=== PATIENT | male | born 1960 | race Caucasian/White ===

== ENCOUNTER → 2016-12-25 | Outpatient (CLI) | payer OTHER ==
[2015-12-30 11:30] VITALS: BP 104/57
[~2016-12-25] MED LIST: AMLO10TA4 PO; ATOR40TA PO; Aspirin PO; DOCU-109 PO; FURO-68 PO; LISI20TA PO; METH-38 PO; METO50TA2 PO; Metoprolol Tartrate PO; Nicotine TD; OXYC-323 PO; OXYC1TAB7 PO; PANT40TA3 PO; POTA20TA4 PO; PROAIR HFA8.5 GM IH
--- NOTE | 2016-12-25 13:30 | CARD ---
APPROVED REPORT EXAM: Two-dimensional and M-mode echocardiogram with Doppler and color Doppler. Other Information Quality : GoodHR: 71bpm Rhythm : NSR INDICATION Cardiac Disease: CAD RISK FACTORS Hypertension Obesity Smoking 2D DIMENSIONS RVDd2.9 (2.9-3.5cm)Left Atrium(2D)2.4 (1.6-4.0cm) IVSd1.0 (0.7-1.1cm)Aortic Root(2D)3.9 (2.0-3.7cm) LVDd5.1 (3.9-5.9cm)LVOT Diameter2.3 (1.8-2.4cm) PWd1.0 (0.7-1.1cm)LVDs3.6 (2.5-4.0cm) FS (%) 30.5 %SV71.8 ml LVEF(%)57.6 (>50%) Aortic Valve AoV Peak Patricio.150.1cm/sAoV VTI28.2cm AO Peak GR.9.0mmHgLVOT Peak Patricio.97.8cm/s AO Mean GR.5mmHgAVA (VMAX)2.65cm2 Mitral Valve MV E Tbscnmri95.6cm/sMV E Peak Gr.3mmHg MV DECEL [id number] A Mpqmmyhc06.3cm/s MV E Mean Gr.1mmHgE/A Ratio0.8 MV A Iqnrjzvo92mu Pulmonary Valve PV Peak Gonqqxce10.9cm/s Pulmonary Vein S1 Vfyuxpnd17.1cm/sD2 Qejjskyr41.6cm/s PVa skjybmeo39glna LEFT VENTRICLE The left ventricle is normal size. There is normal left ventricular wall thickness. The left ventricu lar systolic function is normal and the ejection fraction is within normal range. The Ejection Fracti on is 55-60%. There is normal LV segmental wall motion. Transmitral Doppler flow pattern is Grade I-a bnormal relaxation pattern. RIGHT VENTRICLE The right ventricle is normal size. There is normal right ventricular wall thickness. The right ventr icular systolic function is normal. ATRIA The left atrium size is normal. The right atrium size is normal. The interatrial septum is intact wit h no evidence for an atrial septal defect or patent foramen ovale as noted on 2-D or Doppler imaging. AORTIC VALVE The aortic valve is not well visualized but appears mildly calcified and opens adequately. Doppler an d Color Flow revealed no significant aortic regurgitation. There is no significant aortic valvular st enosis. MITRAL VALVE The mitral valve is not well visualized but appears to open adequately. There is no evidence of porsche l valve prolapse. There is no mitral valve stenosis. Doppler and Color Flow revealed trace mitral tayler ve regurgitation. TRICUSPID VALVE Doppler and Color Flow revealed no tricuspid valve regurgitation noted. PULMONIC VALVE The pulmonic valve is not well visualized but appears to open adequately. Doppler and Color Flow reve aled no pulmonic valvular regurgitation. There is no pulmonic valvular stenosis by spectral Doppler. GREAT VESSELS The aortic root is mildly enlarged. The ascending aorta is mildly dilated. The pulmonary artery is no rmal. The IVC was obscured, unable to assess. PERICARDIAL EFFUSION There is no evidence of significant pericardial effusion. Critical Notification Critical Value: No <Conclusion> The left ventricle is normal size. The left ventricular systolic function is normal and the ejection fraction is within normal range. The Ejection Fraction is 55-60%. There is no significant aortic valvular stenosis. Doppler and Color Flow revealed no significant aortic regurgitation. Doppler and Color Flow revealed trace mitral valve regurgitation. Doppler and Color Flow revealed no tricuspid valve regurgitation noted.
== END | disposition home or self-care (01) ==
LOC: ECHO 10:42
PROVIDERS: ATTEND Internal Medicine Cardiovascular Disease
DX: I25.10 Atherosclerotic heart disease of native coronary artery without angina pectoris (principal); I34.0 Nonrheumatic mitral (valve) insufficiency
CPT/HCPCS: 93306

== ENCOUNTER → 2017-11-01 | Outpatient (CLI) | payer OTHER | END | disposition home or self-care (01) | LOC: KCIC US 10:14 | DX: R60.0 Localized edema (principal); I13.0 Hypertensive heart and chronic kidney disease with heart failure and stage 1 through stage 4 chronic kidney disease, or unspecified chronic kidney disease; I50.9 Heart failure, unspecified; N18.9 Chronic kidney disease, unspecified; E78.5 Hyperlipidemia, unspecified; Z86.2 Personal history of diseases of the blood and blood-forming organs and certain disorders involving the immune mechanism | CPT/HCPCS: 93970 ==

== ENCOUNTER → 2017-12-26 | Outpatient (CLI) | payer MEDICARE, OTHER ==
[2015-12-30 11:30] VITALS: BP 104/57
[~2017-12-26] MED LIST changes: -METO50TA2 PO; +METO50TA6 PO; +PERFLUTREN PROTEIN-A MICROSPHR 0.22 MG/ML 3 ML VIAL. IV ONE; +PERFLUTREN PROTEIN-A MICROSPHR 0.22 MG/ML 3 ML VIAL. IV PRN
--- NOTE | 2017-12-26 11:05 | CARD ---
MR#: [id number] Date of Study: 12/26/2017 Ordering Physician: JOE KUHN, Referring Physician: JOE KUHN Tech: Cheyenne Tidwell RDCS APPROVED REPORT EXAM: Two-dimensional echocardiogram with contrast. Other Information Quality : Technically Limited Technically limited study due to body habitus and COPD INDICATION Non-Ischemic Cardiomyopathy Echo Enhancing Agent Agent/Amount Used: Optison 4mL RISK FACTORS Obesity Smoking 2D DIMENSIONS RVDd2.7 (2.9-3.5cm)Left Atrium(2D)3.8 (1.6-4.0cm) IVSd1.6 (0.7-1.1cm)Aortic Root(2D)3.8 (2.0-3.7cm) LVDd5.0 (3.9-5.9cm)LVOT Diameter2.4 (1.8-2.4cm) PWd1.2 (0.7-1.1cm)LVDs2.7 (2.5-4.0cm) FS (%) 30.0 %SV91.7 ml LVEF(%)60.0 (>50%) Aortic Valve AoV Peak Patricio.165.9cm/sAoV VTI29.3cm AO Peak GR.11.0mmHgLVOT VTI 26.11cm AO Mean GR.5mmHgAVA (VTI)3.96cm2 Mitral Valve MV E Wgexkpgb17.4cm/sMV DECEL ZIMQ226qd MV A Okpwgfcl19.5cm/sE/A Ratio1.2 TDI Lateral E' P. V12.04cm/sMedial E' P. V9.33cm/s E/Lateral E'6.8E/Medial E'8.7 Pulmonary Vein S1 Neghgtfw44.0cm/sS2 Fjojlejs94.12cm/s D2 Stjzaryl55.1cm/s LEFT VENTRICLE The left ventricle is normal size. There is mild concentric left ventricular hypertrophy. The left ve ntricular systolic function is normal. The Ejection Fraction is 55-60%. There is normal LV segmental wall motion. RIGHT VENTRICLE The right ventricle is normal size. The right ventricular systolic function is normal. ATRIA The left atrium size is normal. The right atrium size is normal. The interatrial septum is intact wit h no evidence for an atrial septal defect or patent foramen ovale as noted on 2-D or Doppler imaging. AORTIC VALVE The aortic valve is calcified but opens well. Doppler and Color Flow revealed no significant aortic r egurgitation. There is no significant aortic valvular stenosis. MITRAL VALVE The mitral valve is calcified but opens well. There is no evidence of mitral valve prolapse. There is no mitral valve stenosis. Doppler and Color Flow revealed trace mitral valve regurgitation. TRICUSPID VALVE The tricuspid valve is normal in structure and function. Doppler and Color Flow revealed no tricuspid valve regurgitation noted. There is no tricuspid valve stenosis. PULMONIC VALVE The pulmonic valve is not well visualized. Doppler and Color Flow revealed no pulmonic valvular regur gitation. There is no pulmonic valvular stenosis. GREAT VESSELS The aortic root is normal in size. The ascending aorta is not well seen. The IVC was not visualized. PERICARDIAL EFFUSION There is no evidence of significant pericardial effusion. Critical Notification Critical Value: No <Conclusion> The left ventricular systolic function is normal. The Ejection Fraction is 55-60%. There is normal LV segmental wall motion. Trace mitral valve regurgitation. There is no evidence of significant pericardial effusion. Signed by : Joe Kuhn, Electronically Approved : 12/26/2017 11:04:48
== END | disposition home or self-care (01) ==
LOC: ECHO 09:06
PROVIDERS: ATTEND Internal Medicine Cardiovascular Disease
DX: I42.9 Cardiomyopathy, unspecified (principal); I13.0 Hypertensive heart and chronic kidney disease with heart failure and stage 1 through stage 4 chronic kidney disease, or unspecified chronic kidney disease; I50.9 Heart failure, unspecified; N18.9 Chronic kidney disease, unspecified; E78.5 Hyperlipidemia, unspecified; J44.9 Chronic obstructive pulmonary disease, unspecified; F17.210 Nicotine dependence, cigarettes, uncomplicated; Z86.2 Personal history of diseases of the blood and blood-forming organs and certain disorders involving the immune mechanism
CPT/HCPCS: C8929; Q9956

== ENCOUNTER 2018-08-21 17:44 | Inpatient (IN) | payer MEDICARE, OTHER ==
[~2018-08-21] VITALS: Ht 182.9 cm; Wt 146.5 kg
[~2018-08-21 17:44] MED LIST changes: +ALBU2.5V8 IH; -OXYC-323 PO; +OXYC1TAB15 PO; -PERFLUTREN PROTEIN-A MICROSPHR 0.22 MG/ML 3 ML VIAL. IV ONE; -PERFLUTREN PROTEIN-A MICROSPHR 0.22 MG/ML 3 ML VIAL. IV PRN; -PROAIR HFA8.5 GM IH
--- NOTE | 2018-08-21 20:07 | HP ---
ADMIT DATE: 08/21/2018 CHIEF COMPLAINT: Shortness of breath. HISTORY OF PRESENT ILLNESS: A 58-year-old white male who has multiple medical problems including COPD, coronary artery disease, untreated sleep apnea, hypertension, hyperlipidemia and mild diabetes. He has had increasing shortness of breath and borderline oxygen status for the last few weeks, has not responded to diuretics to this point. He has dry cough, some sputum production, but mainly just fatigue and dyspnea. Oxygen saturation was 75% on room air and he was admitted as acute exacerbation of chronic obstructive pulmonary disease with severe hypoxemia and suspected respiratory acidosis. MEDICATIONS: Include metformin, metoprolol, furosemide, lisinopril, amlodipine, Anoro and atorvastatin. He sees Dr. Hart and is known to have medically treated coronary artery disease after cardiac catheterization. Diabetic control was fair with an A1c of 8.1, but he is having trouble tolerating higher dose metformin. PAST SURGICAL HISTORY: He has had an AAA surgery in 05/2015. He has had bilateral lower extremity arterial bypass by Dr. Norton. He has also had lumbar spine surgery as well. ALLERGIES: He has no known drug allergies. SOCIAL HISTORY: Still about half pack a day smoker, has smoked since he was a young man. , employed. Relatively limited alcohol intake. FAMILY HISTORY: Father of heart disease. Mother is living with heart disease and diabetes. Siblings are healthy. REVIEW OF SYSTEMS: He has known sleep apnea, but is intolerant of CPAP. He has no other nonspecific medical problems. OBJECTIVE: ENT: Fairly significant cyanosis is present. Eyes, ears and pharynx clear. Eyes are red. NECK: Revealed no carotid bruits, nodes, thyroid enlargement or masses. LUNGS: Reveal bilateral inspiratory crackles and expiratory wheezes, mild to moderate in nature. CARDIOVASCULAR: Regular rate. No tachycardia or murmurs heard. ABDOMEN: Obese, soft, protuberant, benign and nontender. EXTREMITIES: 3+ pitting edema of both lower extremities, minimal pedal pulses. Nails are cyanotic. Clubbing is noted in the fingernails. NEUROLOGIC: Alert, appropriate, responsive, nonfocal, moves all extremities, walks appropriately. ASSESSMENT: 1. Severe exacerbation of acute chronic obstructive pulmonary disease with fair to severe hypoxemia. He is an ongoing tobacco smoker, certainly has a degree of pulmonary hypertension and cor pulmonale. 2. Edema, likely secondary more to cor pulmonale than anything. 3. Untreated obstructive sleep apnea. 4. Type 2 diabetes mellitus. 5. Chronic tobacco abuse. 6. Peripheral arterial disease. 7. Coronary artery disease, medical to this point. PLAN: Diuresis, Solu-Medrol, respiratory treatments, pulmonary assessment with chest x-ray and may well need a CT to rule out chronic thromboembolic disease. He is at moderate risk for the need for BiPAP and even intubation at this point. Appropriate consultations will be obtained. JIM SAMS MD DR: BI/torres JOB#: [id number] / [id number]
[2018-08-21 20:16] VITALS: BP 144/74
[2018-08-21] MEDS ORDERED: AMLO5TAB10 PO (20:25)
[2018-08-21] MEDS ORDERED: METF500T16 PO (20:25)
[2018-08-21] MEDS ORDERED: NICOTINE 21MG PATCH. TD PRN (21:00)
[2018-08-21] MEDS ORDERED: ALBUTEROL SULFATE 2.5 MG/3 ML NEBU. NEB PRN (21:00)
[2018-08-21] MEDS ORDERED: ALBUTEROL SULFATE 2.5 MG/3 ML NEBU. INH PRN (21:00)
[2018-08-21] MEDS ORDERED: METOPROLOL TART IMMED RELEASE 50 MG TABLET. PO SCH (21:00)
[2018-08-21 21:50] LABS: BASO # 0.1 x10^3/uL (0.0-0.2); BASO % 1 % (0-3); EOS # 0.2 x10^3/uL (0.0-0.7); EOS % 2 % (0-3); HEMATOCRIT 55.2 % (39.0-53.0); HEMOGLOBIN 17.9 g/dL (13.0-17.5); LYMPH # 1.3 x10^3/uL (1.0-4.8); LYMPH % 13 % (24-48); MEAN CORPUSCULAR HEMOGLOBIN 32 pg (25-35); MEAN CORPUSCULAR HGB CONC 33 g/dL (31-37); MEAN CORPUSCULAR VOLUME 97 fL (79-100); MONO # 0.6 x10^3/uL (0.0-1.1); MONO % 6 % (0-9); NEUT # 8.2 x10^3uL (1.8-7.7); NEUT % 79 % (31-73); PLATELET COUNT 222 x10^3/uL (140-400); RED BLOOD COUNT 5.68 x10^6/uL (4.30-5.70); RED CELL DISTRIBUTION WIDTH 18.8 % (11.5-14.5); WHITE BLOOD COUNT 10.3 x10^3/uL (4.0-11.0)
[2018-08-21 22:06] LABS: ALBUMIN 2.9 g/dL (3.4-5.0); ALBUMIN/GLOBULIN RATIO 0.7 (1.0-1.7); CREATININE 1.4 mg/dL (0.7-1.3); GFR 52.1; POTASSIUM 4.4 mmol/L (3.5-5.1); TOTAL BILIRUBIN 0.7 mg/dL (0.2-1.0)
--- NOTE | 2018-08-21 22:30 | RAD ---
EXAM: Chest, 2 views. HISTORY: Shortness of breath. COMPARISON: 06/11/2015 FINDINGS: 2 views of the chest are obtained. There is mild pulmonary congestion. There is no consolidation, pleural effusion or pneumothorax. The heart is normal in size. There are few calcified granulomas. IMPRESSION: Mild pulmonary congestion. Electronically signed by: Rosangela Lynch MD (08/21/2018 10:27 PM) [facility]
[2018-08-21] MEDS: ATORVASTATIN CALCIUM 40 MG TABLET. PO SCH (22:42)
[2018-08-21] MEDS: methylPREDNISolone SOD SUCC PF 125 MG/2 ML VIAL. IV SCH (22:42)
[2018-08-21] MEDS: LISINOPRIL 20 MG TABLET PO SCH (22:43)
[2018-08-21 23:05] VITALS: BP 131/68
[2018-08-21 23:42] LABS: PCO2 COOX 66 mmHg (35-46)
[2018-08-21 23:43] LABS: BASE EXCESS COOX 6 mmol/L (-3-3); HCO3 COOX 35 mmol/L (21-28); PO2 COOX 87 mmHg (75-108); SAT O2 COOX 96 % (92-99)
[2018-08-21 23:44] LABS: METHEMOGLOBIN 0.7 % (0.0-1.9); OXYHEMOGLOBIN 85.5 %
[2018-08-22] VITALS (7 sets, daily range): BP systolic 106–156; BP diastolic 45–83
[2018-08-22] MEDS ORDERED: ALPRAZolam 0.5 MG TABLET PO PRN
[2018-08-22 06:38] LABS: BASE EXCESS ABG 2 mmol/L (-3-3); HCO3 ABG 36 mmol/L (21-28); PO2 ABG 70 mmHg (75-108); SAT O2 ABG 90 % (92-99)
[2018-08-22 06:49] LABS: FIO2 ABG 32; PCO2 ABG 105 mmHg (35-46)
--- NOTE | 2018-08-22 07:10 | NUR ---
Rapid Response: Rapid response called by patient's RN for abnormal ABG's. RN states patient was admitted yesterday for COPD exacerbation and BiPap was ordered for HS but patient refused to wear. Upon arrival patient is sitting up in the recliner with BiPap on with settings of I/E 20/6, rate 24, FiO2 40%--RT states BiPap has only been on for a "few minutes". Patient is arousable to name and slow to respond but was oriented to self and place, forgetful of time. Heart tones distant RRR, tele SR and patient does have generalized edema. Lung sounds anteriorly softly coarse and decreased in all harrison. On BiPap oxygen saturations are mid nineties, RR 24, and patient does not appear to be in any distress. Dr Corrales called at 0700, notified of above, patient's past medical history and SoluMedrol dose. Orders received to repeat ABG's in one hour, decrease BiPap rate to 20, and obtain a portable CXR. Notified RN, patient, and patient's family of orders--patient to remain on the unit unless RN notices he is decompensating or worsened ABG results. RN and family verbalizes understanding. See orders and lab results. Addendum: 08/22/18 at 0732 by REMINGTON DEAN RN Amended: Links added.
[2018-08-22] MEDS: methylPREDNISolone SOD SUCC PF 125 MG/2 ML VIAL. IV SCH ×3 (07:12→20:46)
[2018-08-22] MEDS: IPRATRPIUM/ALBUTEROL 0.5/2.5MG 3 ML NEBU. NEB SCH ×4 (07:22→21:03)
--- NOTE | 2018-08-22 07:26 | EKG ---
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
--- NOTE | 2018-08-22 07:44 | RAD ---
Portable chest, 08/22/2018: HISTORY: COPD Comparison is made to a study from 08/21/2018. The heart size is normal. The pulmonary vascularity is within normal limits. No pulmonary infiltrate is seen. There is no evidence of pleural fluid. IMPRESSION: No acute cardiopulmonary abnormality is detected. Electronically signed by: Darrian Mercado MD (08/22/2018 7:42 AM) [facility]
[2018-08-22] MEDS: ASPIRIN CHEWABLE 81 MG TABLET. PO SCH (08:00)
[2018-08-22] MEDS ORDERED: POTASSIUM CHLORIDE 20 MEQ TABLET.ER. PO SCH (08:00)
[2018-08-22] MEDS: metFORMIN 500 MG TABLET PO SCH ×2 (08:00→16:30)
[2018-08-22] MEDS ORDERED: DEXTROSE 50% 25 GM / 50ML DISP.SYRIN. IV PRN (08:30)
--- NOTE | 2018-08-22 08:33 | PDOC ---
Provider Note Provider Note w/out bipap he got sever resp acidosis/hypercarbia, now sleeing on bipap, abg pending- labs ok but high Hb from obvious source- will add low dose lantus re steroids, iv lasix , d/w family, may need icu JIM SAMS MD August 22, 2018 08:33
[2018-08-22 08:53] LABS: BASE EXCESS ABG 3 mmol/L (-3-3); HCO3 ABG 35 mmol/L (21-28); PO2 ABG 70 mmHg (75-108); SAT O2 ABG 93 % (92-99)
[2018-08-22] MEDS ORDERED: FUROSEMIDE 40 MG TABLET. PO SCH (09:00)
[2018-08-22] MEDS: LISINOPRIL 20 MG TABLET PO SCH ×2 (09:00→20:48)
[2018-08-22] MEDS: METOPROLOL TART IMMED RELEASE 50 MG TABLET. PO SCH ×2 (09:00→20:47)
[2018-08-22] MEDS: FAMOTIDINE 20 MG TABLET. PO SCH ×2 (09:00→20:48)
[2018-08-22] MEDS: amLODIPine BESYLATE 5 MG TABLET PO SCH (09:00)
[2018-08-22 09:06] LABS: PCO2 ABG 79 mmHg (35-46)
[2018-08-22 09:07] LABS: FIO2 ABG 35
--- NOTE | 2018-08-22 09:09 | PDOC2 ---
[facility] [employer] [employer] 08/22/18 0909: CARDIAC CONSULT DATE OF CONSULT Date of Consult DATE: 08/22/18 TIME: 08:55 REASON FOR CONSULT Reason for Consult: Shortness of breath Hx of CHF REFERRING PHYSICIAN Referring Physician: Dr. Fan SOURCE Source: Caregiver, Chart review, Patient HISTORY OF PRESENT ILLNESS HISTORY OF PRESENT ILLNESS This is a 58 yo male, with a history of NICM, CAD, abdominal aortic aneurysm s/p repair, COPD, and untreated MARTIN, who presented secondary to shortness of breath. Patient presently requiring BiPAP. Information obtain from and family. Has had progressive dyspnea over the last couple of week. Significantly worse the last couple of days. Has had difficulty sleeping due to shortness of breath. reports some hallucinations at HS. Had been more drowsy recently. Saw PCP yesterday, and was recommend to go to the ED for further evaluation and treatment. Was confused overnight; wandering halls and pulled out IV. Was refusing BiPAP. Blood gas this morning with CO2 105. Presently on BiPAP and drowsy. denies any recent complaints of chest pain, palpitations, dizziness, diaphoresis, or nausea/vomiting. Has h/o venous insufficiency with chronic LE edema. No worse than usual, recently. No recent fevers/illness. Unfortunately, continues to smoke 3/4 pack per day. PAST MEDICAL HISTORY Cardiovascular: CAD, CHF (NICM), HTN, Hyperlipidemia, Other (PAD, aortic mural thrombus, AAA) Pulmonary: COPD, Other (MARTIN) CENTRAL NERVOUS SYSTEM: Other (no pertinent hx) GI: No pertinent hx Heme/Onc: No pertinent hx Hepatobiliary: No pertinent hx Psych: Anxiety Musculoskeletal: Osteoarthritis Rheumatologic: No pertinent hx Infectious disease: No pertinent hx ENT: No pertinent hx Renal/: Chronic renal insuff Endocrine: Diabetes Dermatology: No pertinent hx PAST SURGICAL HISTORY Past Surgical History: Other (AAA repair, bilateral lower extremity arterial bypass by Dr. Norton, back surgery) CURRENT MEDICATIONS CURRENT MEDICATIONS Current Medications Medications (Trade) Dose Ordered Sig/Pat Route PRN Reason Start Time Stop Time Status Last Admin Dose Admin Methylprednisolone Sodium Succinate (SOLU-Medrol 125MG VIAL) 60 mg Q8HRS IV 08/21/18 22:00 08/22/18 07:12 Albuterol/ Ipratropium (Duoneb) 3 ml RTQID NEB 08/22/18 08:00 08/22/18 07:22 Albuterol Sulfate (Ventolin Neb Soln) 2.5 mg PRN Q6HRS PRN NEB SHORTNESS OF BREATH 08/21/18 21:00 08/21/18 21:55 Atorvastatin Calcium (Lipitor) 40 mg QHS PO 08/21/18 21:00 08/21/18 22:42 Lisinopril (Prinivil) 20 mg BID PO 08/21/18 21:00 08/21/18 22:43 Metoprolol Tartrate (Lopressor) 50 mg BID PO 08/21/18 21:00 08/22/18 08:21 DC 08/21/18 22:44 ALLERGIES ALLERGIES: Coded Allergies: Iodinated Contrast- Oral and IV Dye (Verified Allergy, Intermediate, BLOOD PRESSURE DROPPED & PASSED OUT, 12/29/15) ROS Review of System 14 point ROS conducted with pertinent positives noted above in HPI. PHYSICAL EXAM General: Alert, mild distress, Other (drowsy) HEENT: Atraumatic, Mucous membr. moist/pink Lungs: Other (diminished throughout. on BiPAP) Heart: Regular rate, Normal S1, Normal S2, Other (distant heart tones) Abdomen: Soft, Other (obese ) Extremities: Other (1-2+ bilateral LE edema) Skin: No significant lesion Neuro: Sensation intact Psych/Mental Status: Other (drowsy) MUSCULOSKELETAL: No deformity VITALS VITALS Vital Signs Date Time Temp Pulse Resp B/P (MAP) Pulse Ox O2 Delivery O2 Flow Rate FiO2 08/22/18 08:03 98.1 77 20 106/45 (65) 92 BiPAP/CPAP 98.1 08/22/18 03:13 3.0 LABS Lab: Laboratory Tests Test 08/21/18 09:50 08/21/18 21:40 08/21/18 21:50 08/22/18 05:35 O2 Saturation % (92-99) 96 % (92-99) Arterial Blood pH (7.35-7.45) 7.34 (7.35-7.45) Arterial Blood pCO2 at Patient Temp mmHg (35-46) 66 mmHg (35-46) Arterial Blood pO2 at Patient Temp mmHg (75-108) 87 mmHg (75-108) Arterial Blood HCO3 mmol/L (21-28) 35 mmol/L (21-28) Arterial Blood Base Excess mmol/L (-3-3) 6 mmol/L (-3-3) Oxyhemoglobin % 85.5 % Methemoglobin % (0.0-1.9) 0.7 % (0.0-1.9) Carbon Monoxide, Quantitative % (0.0-1.9) 10.7 % (0.0-1.9) White Blood Count 10.3 x10^3/uL (4.0-11.0) Red Blood Count 5.68 x10^6/uL (4.30-5.70) Hemoglobin 17.9 g/dL (13.0-17.5) Hematocrit 55.2 % (39.0-53.0) Mean Corpuscular Volume 97 fL (79-100) Mean Corpuscular Hemoglobin 32 pg (25-35) Mean Corpuscular Hemoglobin Concent 33 g/dL (31-37) Red Cell Distribution Width 18.8 % (11.5-14.5) Platelet Count 222 x10^3/uL (140-400) Neutrophils (%) (Auto) 79 % (31-73) Lymphocytes (%) (Auto) 13 % (24-48) Monocytes (%) (Auto) 6 % (0-9) Eosinophils (%) (Auto) 2 % (0-3) Basophils (%) (Auto) 1 % (0-3) Neutrophils # (Auto) 8.2 x10^3uL (1.8-7.7) Lymphocytes # (Auto) 1.3 x10^3/uL (1.0-4.8) Monocytes # (Auto) 0.6 x10^3/uL (0.0-1.1) Eosinophils # (Auto) 0.2 x10^3/uL (0.0-0.7) Basophils # (Auto) 0.1 x10^3/uL (0.0-0.2) Sodium Level 139 mmol/L (136-145) Potassium Level 4.4 mmol/L (3.5-5.1) Chloride Level 100 mmol/L (98-107) Carbon Dioxide Level 34 mmol/L (21-32) Anion Gap 5 (6-14) Blood Urea Nitrogen 21 mg/dL (8-26) Creatinine 1.4 mg/dL (0.7-1.3) Estimated GFR (Cockcroft-Gault) 52.1 BUN/Creatinine Ratio 15 (6-20) Glucose Level 124 mg/dL (70-99) Calcium Level 9.0 mg/dL (8.5-10.1) Total Bilirubin 0.7 mg/dL (0.2-1.0) Aspartate Amino Transf (AST/SGOT) 11 U/L (15-37) Alanine Aminotransferase (ALT/SGPT) 25 U/L (16-63) Alkaline Phosphatase 77 U/L (46-116) Total Protein 7.0 g/dL (6.4-8.2) Albumin 2.9 g/dL (3.4-5.0) Albumin/Globulin Ratio 0.7 (1.0-1.7) Thyroid Stimulating Hormone (TSH) 1.752 uIU/mL (0.358-3.74) Alveolar-arterial Oxygen Gradient mmHg (0.0-20.0) FiO2 40 Glucose (Fingerstick) 173 mg/dL (70-99) Test 08/22/18 06:26 O2 Saturation 90 % (92-99) Arterial Blood pH 7.15 (7.35-7.45) Arterial Blood pCO2 at Patient Temp 105 mmHg (35-46) Arterial Blood pO2 at Patient Temp 70 mmHg (75-108) Arterial Blood HCO3 36 mmol/L (21-28) Arterial Blood Base Excess 2 mmol/L (-3-3) FiO2 32 ECHOCARDIOGRAM ECHOCARDIOGRAM <Conclusion> The left ventricular systolic function is normal. The Ejection Fraction is 55-60%. There is normal LV segmental wall motion. Trace mitral valve regurgitation. There is no evidence of significant pericardial effusion. DATE: 12/26/17 1104 STRESS TEST STRESS TEST Conclusion 1. No evidence of significant ischemia or previous myocardial infarction appreciated. 2. Ejection fraction calculated to be 48% with septal hypokinesis noted on gated SPECT images. 3. Normal nuclear imaging scan. DATE: 01/28/14 1554 HEART CATH HEART CATH Conclusion Normal left main coronary artery. 2 vessel coronary artery disease encompassing the very distal portion of the left circumflex coronary artery and the midportion of a codominant medium in size right posterior descending coronary artery. Severe left ventricular systolic dysfunction with visually estimated ejection fraction of 25%. DATE: 01/07/14 1702 ASSESSMENT/PLAN ASSESSMENT/PLAN 1. Acute respiratory failure wtih AE COPD with continued tobaccoism; on BiPAP 2. Chronic diastolic HF; no significant vascular congestion noted on CXR. NT Pro BNP 393. Doubt overt HF 3. NICM; most recent echo with LV recovery 4. CAD; cath 2013 with distal LCx stenosis and medium caliber codominant RCA stenosis- medical management. CP free 5. CKD; Cr stable per review 6. Hypertension; low normotensive 7. Hyperlipidemia; statin 8. AAA s/p open surgical repair and aorto biiliac bypass 9. Venous insufficiency; reflux study notable for significant insufficiency involving bilateral greater saphenous veins. Conservative management recommend by vascular surgery Recommendations Echo to assess LV systolic function Lipids Secondary prevention; ASA, statin, BB, ACEi Oral lasix therapy Continue BiPAP Following pulmonary recs Consider outpatient ischemic evaluation Smoking cessation discussed and encourage Need treatment of MARTIN JOE KUHN MD 08/22/18 1548: CARDIAC CONSULT ASSESSMENT/PLAN ASSESSMENT/PLAN Patient seen and examined. Agree with PLANT TECHNICIAN's assessment and plan. Acute respiratory failure secondary to acute COPD exacerbation Chronic diastolic heart failure appears clinically well compensated Edema lower extremities appears stable and secondary to known history of venous insufficiency that is being managed conservatively 2-D echo showed normal LV systolic function and diastolic dysfunction Continue current treatment of COPD exacerbation per pulmonary team CAD status clinically stable Thank you for your consultation TAYO EAST APRN August 22, 2018 09:09 JOE KUHN MD August 22, 2018 15:48
[2018-08-22] MEDS ORDERED: INSULIN GLARGINE 300 UNITS/3 ML INSULN.PEN. SQ SCH (10:00)
[2018-08-22 10:31] LABS: CALCIUM 9.1 mg/dL (8.5-10.1); CREATININE 1.3 mg/dL (0.7-1.3); GFR 56.7
--- NOTE | 2018-08-22 12:48 | CARD ---
MR#: [id number] Date of Study: 08/22/2018 Ordering Physician: ALICIA DELGADILLO, Referring Physician: JIM SAMS Tech: Martine Mcfarland APPROVED REPORT EXAM: Two-dimensional and M-mode echocardiogram with Doppler and color Doppler. Other Information Quality : AverageHR: 72bpm Technically limited study due to body habitus. INDICATION COPD Dyspnea Cardiac Disease: CAD Respiratory Failure RISK FACTORS Hypertension Hyperlipidemia Diabetes Smoking 2D DIMENSIONS RVDd2.6 (2.9-3.5cm)IVSd1.5 (0.7-1.1cm) Aortic Root(2D)3.8 (2.0-3.7cm)LVDd4.7 (3.9-5.9cm) PWd1.4 (0.7-1.1cm) Aortic Valve AoV Peak Patricio.182.4cm/sAoV VTI30.0cm AO Peak GR.13.3mmHgLVOT VTI 21.22cm AO Mean GR.4mmHg Mitral Valve MV E Urscarsr26.0cm/sMV DECEL HPLV490tm MV A Kemlwrmd23.4cm/sE/A Ratio1.1 TDI Lateral E' P. V9.46cm/sMedial E' P. V8.30cm/s E/Lateral E'10.1E/Medial E'11.6 Pulmonary Valve PV Peak Mkfbafou02.5cm/s Tricuspid Valve TR P. Wktxzycu503ey/sRAP FSUQBQFG6pcNl TR Peak Gr.60zxFlBEFR12poAv Pulmonary Vein S1 Shuvqpgh37.1cm/sS2 Esdjnuxt15.88cm/s D2 Ydphegit31.9cm/sPVa auohirch059zbic LEFT VENTRICLE The left ventricle is normal size. There is mild concentric left ventricular hypertrophy. The left ve ntricular systolic function is normal and the ejection fraction is within normal range. The Ejection Fraction is 55-60%. There is normal LV segmental wall motion. Transmitral Doppler flow pattern is Gra de II-pseudonormal filling dynamics. RIGHT VENTRICLE The right ventricle is normal size. There is normal right ventricular wall thickness. The right ventr icular systolic function is normal. ATRIA The left atrium size is normal. The right atrium is borderline dilated. The interatrial septum is int act with no evidence for an atrial septal defect or patent foramen ovale as noted on 2-D or Doppler i maging. AORTIC VALVE The aortic valve is normal in structure and function. Doppler and Color Flow revealed no significant aortic regurgitation. There is no significant aortic valvular stenosis. MITRAL VALVE The mitral valve is normal in structure and function. There is no evidence of mitral valve prolapse. There is no mitral valve stenosis. Doppler and Color-flow revealed trace mitral regurgitation. TRICUSPID VALVE The tricuspid valve is normal in structure and function. Doppler and Color Flow revealed no tricuspid valve regurgitation noted. There is no tricuspid valve stenosis. PULMONIC VALVE The pulmonic valve is not well visualized. Doppler and Color Flow revealed no pulmonic valvular regur gitation. GREAT VESSELS The aortic root is normal in size. The IVC is normal in size and collapses >50% with inspiration. PERICARDIAL EFFUSION There is no evidence of significant pericardial effusion. Critical Notification Critical Value: No <Conclusion> The left ventricle is normal size. The left ventricular systolic function is normal and the ejection fraction is within normal range. The Ejection Fraction is 55-60%. There is mild concentric left ventricular hypertrophy. There is no significant aortic valvular stenosis. Doppler and Color Flow revealed no significant aortic regurgitation. Doppler and Color-flow revealed trace mitral regurgitation. Doppler and Color Flow revealed no tricuspid valve regurgitation noted. Signed by : Aden Edmond MD Electronically Approved : 08/22/2018 12:47:58
[2018-08-22] MEDS ORDERED: FUROSEMIDE 40 MG/4 ML VIAL. IVP ONE (15:30)
--- NOTE | 2018-08-22 15:41 | PDOC ---
PULMONARY PROGRESS NOTES Vitals Vital Signs Date Time Temp Pulse Resp B/P (MAP) Pulse Ox O2 Delivery O2 Flow Rate FiO2 08/22/18 11:51 92 BiPAP/CPAP 08/22/18 11:16 98.3 79 18 110/54 (72) 98.3 08/22/18 03:13 3.0 General: Alert Lungs: Clear Cardiovascular: S1, S2 Abdomen: Soft Extremities: No Edema Labs Laboratory Tests Test 08/21/18 09:50 08/21/18 21:40 08/21/18 21:50 08/22/18 05:35 O2 Saturation % (92-99) 96 % (92-99) Arterial Blood pH (7.35-7.45) 7.34 (7.35-7.45) Arterial Blood pCO2 at Patient Temp mmHg (35-46) 66 mmHg (35-46) Arterial Blood pO2 at Patient Temp mmHg (75-108) 87 mmHg (75-108) Arterial Blood HCO3 mmol/L (21-28) 35 mmol/L (21-28) Arterial Blood Base Excess mmol/L (-3-3) 6 mmol/L (-3-3) Oxyhemoglobin % 85.5 % Methemoglobin % (0.0-1.9) 0.7 % (0.0-1.9) Carbon Monoxide, Quantitative % (0.0-1.9) 10.7 % (0.0-1.9) White Blood Count 10.3 x10^3/uL (4.0-11.0) Red Blood Count 5.68 x10^6/uL (4.30-5.70) Hemoglobin 17.9 g/dL (13.0-17.5) Hematocrit 55.2 % (39.0-53.0) Mean Corpuscular Volume 97 fL (79-100) Mean Corpuscular Hemoglobin 32 pg (25-35) Mean Corpuscular Hemoglobin Concent 33 g/dL (31-37) Red Cell Distribution Width 18.8 % (11.5-14.5) Platelet Count 222 x10^3/uL (140-400) Neutrophils (%) (Auto) 79 % (31-73) Lymphocytes (%) (Auto) 13 % (24-48) Monocytes (%) (Auto) 6 % (0-9) Eosinophils (%) (Auto) 2 % (0-3) Basophils (%) (Auto) 1 % (0-3) Neutrophils # (Auto) 8.2 x10^3uL (1.8-7.7) Lymphocytes # (Auto) 1.3 x10^3/uL (1.0-4.8) Monocytes # (Auto) 0.6 x10^3/uL (0.0-1.1) Eosinophils # (Auto) 0.2 x10^3/uL (0.0-0.7) Basophils # (Auto) 0.1 x10^3/uL (0.0-0.2) Sodium Level 139 mmol/L (136-145) Potassium Level 4.4 mmol/L (3.5-5.1) Chloride Level 100 mmol/L (98-107) Carbon Dioxide Level 34 mmol/L (21-32) Anion Gap 5 (6-14) Blood Urea Nitrogen 21 mg/dL (8-26) Creatinine 1.4 mg/dL (0.7-1.3) Estimated GFR (Cockcroft-Gault) 52.1 BUN/Creatinine Ratio 15 (6-20) Glucose Level 124 mg/dL (70-99) Calcium Level 9.0 mg/dL (8.5-10.1) Total Bilirubin 0.7 mg/dL (0.2-1.0) Aspartate Amino Transf (AST/SGOT) 11 U/L (15-37) Alanine Aminotransferase (ALT/SGPT) 25 U/L (16-63) Alkaline Phosphatase 77 U/L (46-116) Total Protein 7.0 g/dL (6.4-8.2) Albumin 2.9 g/dL (3.4-5.0) Albumin/Globulin Ratio 0.7 (1.0-1.7) Thyroid Stimulating Hormone (TSH) 1.752 uIU/mL (0.358-3.74) Alveolar-arterial Oxygen Gradient mmHg (0.0-20.0) FiO2 40 Glucose (Fingerstick) 173 mg/dL (70-99) Test 08/22/18 06:26 08/22/18 08:35 08/22/18 09:00 O2 Saturation 90 % (92-99) 93 % (92-99) Arterial Blood pH 7.15 (7.35-7.45) 7.26 (7.35-7.45) Arterial Blood pCO2 at Patient Temp 105 mmHg (35-46) 79 mmHg (35-46) Arterial Blood pO2 at Patient Temp 70 mmHg (75-108) 70 mmHg (75-108) Arterial Blood HCO3 36 mmol/L (21-28) 35 mmol/L (21-28) Arterial Blood Base Excess 2 mmol/L (-3-3) 3 mmol/L (-3-3) FiO2 32 35 Sodium Level 139 mmol/L (136-145) Potassium Level 6.0 mmol/L (3.5-5.1) Chloride Level 102 mmol/L (98-107) Carbon Dioxide Level 31 mmol/L (21-32) Anion Gap 6 (6-14) Blood Urea Nitrogen 23 mg/dL (8-26) Creatinine 1.3 mg/dL (0.7-1.3) Estimated GFR (Cockcroft-Gault) 56.7 Glucose Level 158 mg/dL (70-99) Calcium Level 9.1 mg/dL (8.5-10.1) HV-Lqs-E-Type Natriuretic Peptide 393 pg/mL (0-124) Triglycerides Level 123 mg/dL (0-150) Cholesterol Level 185 mg/dL (0-200) LDL Cholesterol, Calculated 123 mg/dL (0-100) VLDL Cholesterol, Calculated 25 mg/dL (0-40) Non-HDL Cholesterol Calculated 148 mg/dL (0-129) HDL Cholesterol 37 mg/dL (40-60) Cholesterol/HDL Ratio 5.0 Laboratory Tests Test 08/21/18 21:40 08/21/18 21:50 08/22/18 05:35 08/22/18 06:26 White Blood Count 10.3 x10^3/uL (4.0-11.0) Red Blood Count 5.68 x10^6/uL (4.30-5.70) Hemoglobin 17.9 g/dL (13.0-17.5) Hematocrit 55.2 % (39.0-53.0) Mean Corpuscular Volume 97 fL (79-100) Mean Corpuscular Hemoglobin 32 pg (25-35) Mean Corpuscular Hemoglobin Concent 33 g/dL (31-37) Red Cell Distribution Width 18.8 % (11.5-14.5) Platelet Count 222 x10^3/uL (140-400) Neutrophils (%) (Auto) 79 % (31-73) Lymphocytes (%) (Auto) 13 % (24-48) Monocytes (%) (Auto) 6 % (0-9) Eosinophils (%) (Auto) 2 % (0-3) Basophils (%) (Auto) 1 % (0-3) Neutrophils # (Auto) 8.2 x10^3uL (1.8-7.7) Lymphocytes # (Auto) 1.3 x10^3/uL (1.0-4.8) Monocytes # (Auto) 0.6 x10^3/uL (0.0-1.1) Eosinophils # (Auto) 0.2 x10^3/uL (0.0-0.7) Basophils # (Auto) 0.1 x10^3/uL (0.0-0.2) Sodium Level 139 mmol/L (136-145) Potassium Level 4.4 mmol/L (3.5-5.1) Chloride Level 100 mmol/L (98-107) Carbon Dioxide Level 34 mmol/L (21-32) Anion Gap 5 (6-14) Blood Urea Nitrogen 21 mg/dL (8-26) Creatinine 1.4 mg/dL (0.7-1.3) Estimated GFR (Cockcroft-Gault) 52.1 BUN/Creatinine Ratio 15 (6-20) Glucose Level 124 mg/dL (70-99) Calcium Level 9.0 mg/dL (8.5-10.1) Total Bilirubin 0.7 mg/dL (0.2-1.0) Aspartate Amino Transf (AST/SGOT) 11 U/L (15-37) Alanine Aminotransferase (ALT/SGPT) 25 U/L (16-63) Alkaline Phosphatase 77 U/L (46-116) Total Protein 7.0 g/dL (6.4-8.2) Albumin 2.9 g/dL (3.4-5.0) Albumin/Globulin Ratio 0.7 (1.0-1.7) Thyroid Stimulating Hormone (TSH) 1.752 uIU/mL (0.358-3.74) O2 Saturation 96 % (92-99) 90 % (92-99) Arterial Blood pH 7.34 (7.35-7.45) 7.15 (7.35-7.45) Arterial Blood pCO2 at Patient Temp 66 mmHg (35-46) 105 mmHg (35-46) Arterial Blood pO2 at Patient Temp 87 mmHg (75-108) 70 mmHg (75-108) Arterial Blood HCO3 35 mmol/L (21-28) 36 mmol/L (21-28) Arterial Blood Base Excess 6 mmol/L (-3-3) 2 mmol/L (-3-3) Alveolar-arterial Oxygen Gradient mmHg (0.0-20.0) Oxyhemoglobin 85.5 % Methemoglobin 0.7 % (0.0-1.9) Carbon Monoxide, Quantitative 10.7 % (0.0-1.9) FiO2 40 32 Glucose (Fingerstick) 173 mg/dL (70-99) Test 08/22/18 08:35 08/22/18 09:00 O2 Saturation 93 % (92-99) Arterial Blood pH 7.26 (7.35-7.45) Arterial Blood pCO2 at Patient Temp 79 mmHg (35-46) Arterial Blood pO2 at Patient Temp 70 mmHg (75-108) Arterial Blood HCO3 35 mmol/L (21-28) Arterial Blood Base Excess 3 mmol/L (-3-3) FiO2 35 Sodium Level 139 mmol/L (136-145) Potassium Level 6.0 mmol/L (3.5-5.1) Chloride Level 102 mmol/L (98-107) Carbon Dioxide Level 31 mmol/L (21-32) Anion Gap 6 (6-14) Blood Urea Nitrogen 23 mg/dL (8-26) Creatinine 1.3 mg/dL (0.7-1.3) Estimated GFR (Cockcroft-Gault) 56.7 Glucose Level 158 mg/dL (70-99) Calcium Level 9.1 mg/dL (8.5-10.1) QN-Gmd-A-Type Natriuretic Peptide 393 pg/mL (0-124) Triglycerides Level 123 mg/dL (0-150) Cholesterol Level 185 mg/dL (0-200) LDL Cholesterol, Calculated 123 mg/dL (0-100) VLDL Cholesterol, Calculated 25 mg/dL (0-40) Non-HDL Cholesterol Calculated 148 mg/dL (0-129) HDL Cholesterol 37 mg/dL (40-60) Cholesterol/HDL Ratio 5.0 Medications Active Scripts Medications Dose Route/Sig Max Daily Dose Days Date Category Metformin Hcl 500 Mg Tablet 500 Mg PO BIDWMEALS 08/21/18 Reported Amlodipine Besylate 5 Mg Tablet 5 Mg PO DAILY 08/21/18 Reported Proair Hfa Inhaler (Albuterol Sulfate) 8.5 Gm Hfa.aer.ad 2 Puff IH PRN QID PRN 06/15/15 Reported Metoprolol Tartrate 50 Mg Tablet 1 Tab PO BID 06/10/15 Reported Klor-Con M20 (Potassium Chloride) 20 Meq Tablet.er 20 Meq PO DAILYWBKFT 01/07/14 Rx Prinivil (Lisinopril) 20 Mg Tablet 20 Mg PO BID 01/07/14 Rx Lasix (Furosemide) 40 Mg Tablet 40 Mg PO DAILY 01/07/14 Rx [Aspirin] 81 MG Tablet.dr 81 Mg PO DAILYWBKFT 01/07/14 Rx Lipitor (Atorvastatin Calcium) 40 Mg Tablet 40 Mg PO QHS 01/07/14 Rx Impression . NOTE DICTATED A/C RESP FAILURE ACUTE COR PULMONALE SEE ORDERS THANKS ROYA OLIVER MD August 22, 2018 15:41
[2018-08-22] MEDS ORDERED: INSULIN LISPRO 300 UNITS/3 ML INSULN.PEN. SQ ONE (20:15)
[2018-08-22] MEDS: ENOXAPARIN 40 MG/0.4 ML SYRINGE. SQ SCH (20:49)
[2018-08-22] MEDS: ATORVASTATIN CALCIUM 40 MG TABLET. PO SCH (20:49)
[2018-08-22] MEDS: INSULIN GLARGINE 300 UNITS/3 ML INSULN.PEN. SQ SCH (20:58)
--- NOTE | 2018-08-23 01:59 | CONS ---
DATE OF CONSULTATION: 08/22/2018 ATTENDING PHYSICIAN: Dr. Al Fan. REASON FOR CONSULTATION: The patient seen in pulmonary consultation at the request of Dr. Fan for mqzbr-ob-qdrsnzr hypercapnic hypoxemic respiratory failure. Initial pH was 7.15, PaCO2 of 105. HISTORY OF PRESENT ILLNESS: The patient is a 58-year-old morbid obese individual with body mass index of 43 who presented with increasing shortness of breath over the last several weeks, increasing lower extremity edema, unable to lay down flat. He was found to have oxygen saturation on room air of 75%. The patient was admitted. He was placed on oxygen supplementation. This morning, I was called stat with some increasing lethargy. A stat arterial blood gas was obtained revealing a pH of 7.15, pCO2 of 105, pO2 of 70. The patient is currently awake, off of BiPAP. He states that he has been intolerant to CPAP in the past. He did have a polysomnogram several years ago, but was not using anything at home. He does continue to smoke. He has had some lower extremity edema. No fever, chills. Cough, mostly nonproductive. He continues to smoke. PAST MEDICAL HISTORY: 1. Otherwise remarkable for COPD, tobacco dependence. 2. Status post AAA repair in 2016. At that time, he also had bilateral lower extremity bypass. 3. Chronic diastolic heart failure. 4. Type 2 diabetes. 5. Hypertension. 6. Morbid obesity. 7. Coronary artery disease. PAST SURGICAL HISTORY: Status post AAA bypass, lower extremity bypass. He also had some lumbar spine surgery. ALLERGIES: No known drug allergies. SOCIAL HISTORY: He continues to smoke half a pack of cigarettes a day. He is currently , is not working. Limited alcohol intake. FAMILY HISTORY: Father of heart disease. Mother living with heart disease. REVIEW OF SYSTEMS: CONSTITUTIONAL: No fever or chills. EYES: No change in visual acuity. HEENT: No nasal congestion, no sore throat. PULMONARY: As indicated above. CARDIOVASCULAR: No chest pain. No pressure. GASTROINTESTINAL: Some abdominal bloating. GENITOURINARY: No frequency or dysuria. MUSCULOSKELETAL: Chronic pain. No localized muscle aches or joint pains. SKIN: No new skin rashes. NEUROLOGIC: No headaches, diplopia or blurred vision. MEDICATIONS: List from home was reviewed. From a pulmonary standpoint of view, the patient was utilizing albuterol. ALLERGIES: CONTRAST DYE. PHYSICAL EXAMINATION: GENERAL: Morbid obese individual in no respiratory distress. VITAL SIGNS: Currently on room air 91%. HEENT: Eyes, the sclerae were nonicteric. NECK: Jugular venous distention could not be assessed secondary to body habitus. CHEST: Full expansion. LUNGS: Poor airway flow with crackles in the bases. CARDIOVASCULAR: Regular rate and rhythm with S1, S2, no S3. ABDOMEN: Obese, soft. EXTREMITIES: No clubbing, cyanosis. Marked edema. NEUROLOGIC: The patient was awake, alert, following commands. A detailed neuro exam was not performed. LABORATORY DATA: Noted. Hemoglobin and hematocrit were elevated. Arterial blood gas revealed a pH of 7.26, PaCO2 of 79, pO2 of 70. Sodium was normal. Potassium was elevated. Upon admission, his albumin was 2.9. IMPRESSION: 1. Dlfnu-qk-zmnrovq hypoxemic hypercapnic respiratory failure. 2. Mgxmw-wv-jifefrs cor pulmonale. 3. Obstructive sleep apnea, not treated. 4. Morbid obesity, BMI of 41. 5. Status post abdominal aortic aneurysm repair, 05/2015 with bilateral lower extremity arterial bypass. 6. Type 2 diabetes. 7. Hypertension. 8. Coronary artery disease. PLAN: 1. Continue BiPAP. We will adjust settings for comfort. 2. Diurese. 3. The patient instructed to avoid processed foods. 4. The patient instructed on the importance of monitoring caloric intake and start walking on a daily basis. 5. Solu-Medrol. 6. No need for antibiotics. 7. DVT and GI prophylaxis. 8. Nebulized treatments. 9. Outpatient polysomnogram with BiPAP titration. I do appreciate the privilege in sharing in the patient's care. ROYA OLIVER MD DR: CAROLINE/torres JOB#: [id number] / [id number]
[2018-08-23 03:30] VITALS: BP 109/55
[2018-08-23 06:02] LABS: CALCIUM 8.8 mg/dL (8.5-10.1); CREATININE 1.4 mg/dL (0.7-1.3); GFR 52.1
[2018-08-23 07:00] VITALS: BP 121/61
[2018-08-23] MEDS: IPRATRPIUM/ALBUTEROL 0.5/2.5MG 3 ML NEBU. NEB SCH ×4 (07:41→20:17)
--- NOTE | 2018-08-23 08:02 | RAD ---
Portable chest, 08/23/2018: HISTORY: Congestive heart failure Comparison is made to yesterday's study. The heart appears to be within normal limits in size for the portable technique. The pulmonary vascularity is normal. No pulmonary infiltrate is seen. There is no evidence of pleural fluid. IMPRESSION: No acute cardiopulmonary abnormality is detected. Electronically signed by: Darrian Mercado MD (08/23/2018 7:58 AM) [facility]
--- NOTE | 2018-08-23 08:37 | PDOC ---
Provider Note Provider Note more alert after bipap- still wheezing, 3+ edema- labs ok, K+ lower 5.0- will add iv lasix, hold acei re K+- cont airway management, iv steroid- NEEDS TO BE IN HOSPITAL JIM SAMS MD August 23, 2018 08:37
[2018-08-23] MEDS: ASPIRIN CHEWABLE 81 MG TABLET. PO SCH (08:42)
[2018-08-23] MEDS: METOPROLOL TART IMMED RELEASE 50 MG TABLET. PO SCH ×2 (08:43→20:48)
[2018-08-23] MEDS: FAMOTIDINE 20 MG TABLET. PO SCH ×2 (08:43→20:48)
[2018-08-23] MEDS: metFORMIN 500 MG TABLET PO SCH ×2 (08:43→18:12)
[2018-08-23] MEDS: amLODIPine BESYLATE 5 MG TABLET PO SCH (08:44)
[2018-08-23] MEDS: methylPREDNISolone SOD SUCC PF 125 MG/2 ML VIAL. IV SCH ×2 (08:44→20:48)
[2018-08-23] MEDS: ENOXAPARIN 40 MG/0.4 ML SYRINGE. SQ SCH ×4 (08:45→20:58)
[2018-08-23] MEDS: FUROSEMIDE 40 MG/4 ML VIAL. IVP SCH ×2 (08:46→14:33)
[2018-08-23] MEDS ORDERED: FUROSEMIDE 40 MG/4 ML VIAL. ONE (08:46)
--- NOTE | 2018-08-23 09:41 | PDOC ---
PULMONARY PROGRESS NOTES Subjective LESS SOA STILL WHEEZING Vitals Vital Signs Date Time Temp Pulse Resp B/P (MAP) Pulse Ox O2 Delivery O2 Flow Rate FiO2 08/23/18 08:44 80 121/61 08/23/18 07:41 92 Nasal Cannula 4.0 08/23/18 07:00 98.2 16 98.2 ROS: No Nausea, No Chest Pain, No Abdominal Pain General: Alert Lungs: Wheezing, Crackles Cardiovascular: S1, S2 Abdomen: Soft Neuro Exam: Alert Extremities: No Edema Skin: Warm Labs Laboratory Tests Test 08/21/18 09:50 08/21/18 21:40 08/21/18 21:50 08/22/18 05:35 O2 Saturation % (92-99) 96 % (92-99) Arterial Blood pH (7.35-7.45) 7.34 (7.35-7.45) Arterial Blood pCO2 at Patient Temp mmHg (35-46) 66 mmHg (35-46) Arterial Blood pO2 at Patient Temp mmHg (75-108) 87 mmHg (75-108) Arterial Blood HCO3 mmol/L (21-28) 35 mmol/L (21-28) Arterial Blood Base Excess mmol/L (-3-3) 6 mmol/L (-3-3) Oxyhemoglobin % 85.5 % Methemoglobin % (0.0-1.9) 0.7 % (0.0-1.9) Carbon Monoxide, Quantitative % (0.0-1.9) 10.7 % (0.0-1.9) White Blood Count 10.3 x10^3/uL (4.0-11.0) Red Blood Count 5.68 x10^6/uL (4.30-5.70) Hemoglobin 17.9 g/dL (13.0-17.5) Hematocrit 55.2 % (39.0-53.0) Mean Corpuscular Volume 97 fL (79-100) Mean Corpuscular Hemoglobin 32 pg (25-35) Mean Corpuscular Hemoglobin Concent 33 g/dL (31-37) Red Cell Distribution Width 18.8 % (11.5-14.5) Platelet Count 222 x10^3/uL (140-400) Neutrophils (%) (Auto) 79 % (31-73) Lymphocytes (%) (Auto) 13 % (24-48) Monocytes (%) (Auto) 6 % (0-9) Eosinophils (%) (Auto) 2 % (0-3) Basophils (%) (Auto) 1 % (0-3) Neutrophils # (Auto) 8.2 x10^3uL (1.8-7.7) Lymphocytes # (Auto) 1.3 x10^3/uL (1.0-4.8) Monocytes # (Auto) 0.6 x10^3/uL (0.0-1.1) Eosinophils # (Auto) 0.2 x10^3/uL (0.0-0.7) Basophils # (Auto) 0.1 x10^3/uL (0.0-0.2) Sodium Level 139 mmol/L (136-145) Potassium Level 4.4 mmol/L (3.5-5.1) Chloride Level 100 mmol/L (98-107) Carbon Dioxide Level 34 mmol/L (21-32) Anion Gap 5 (6-14) Blood Urea Nitrogen 21 mg/dL (8-26) Creatinine 1.4 mg/dL (0.7-1.3) Estimated GFR (Cockcroft-Gault) 52.1 BUN/Creatinine Ratio 15 (6-20) Glucose Level 124 mg/dL (70-99) Calcium Level 9.0 mg/dL (8.5-10.1) Total Bilirubin 0.7 mg/dL (0.2-1.0) Aspartate Amino Transf (AST/SGOT) 11 U/L (15-37) Alanine Aminotransferase (ALT/SGPT) 25 U/L (16-63) Alkaline Phosphatase 77 U/L (46-116) Total Protein 7.0 g/dL (6.4-8.2) Albumin 2.9 g/dL (3.4-5.0) Albumin/Globulin Ratio 0.7 (1.0-1.7) Thyroid Stimulating Hormone (TSH) 1.752 uIU/mL (0.358-3.74) Alveolar-arterial Oxygen Gradient mmHg (0.0-20.0) FiO2 40 Glucose (Fingerstick) 173 mg/dL (70-99) Test 08/22/18 06:26 08/22/18 08:35 08/22/18 09:00 08/22/18 16:30 O2 Saturation 90 % (92-99) 93 % (92-99) Arterial Blood pH 7.15 (7.35-7.45) 7.26 (7.35-7.45) Arterial Blood pCO2 at Patient Temp 105 mmHg (35-46) 79 mmHg (35-46) Arterial Blood pO2 at Patient Temp 70 mmHg (75-108) 70 mmHg (75-108) Arterial Blood HCO3 36 mmol/L (21-28) 35 mmol/L (21-28) Arterial Blood Base Excess 2 mmol/L (-3-3) 3 mmol/L (-3-3) FiO2 32 35 Sodium Level 139 mmol/L (136-145) Potassium Level 6.0 mmol/L (3.5-5.1) Chloride Level 102 mmol/L (98-107) Carbon Dioxide Level 31 mmol/L (21-32) Anion Gap 6 (6-14) Blood Urea Nitrogen 23 mg/dL (8-26) Creatinine 1.3 mg/dL (0.7-1.3) Estimated GFR (Cockcroft-Gault) 56.7 Glucose Level 158 mg/dL (70-99) Calcium Level 9.1 mg/dL (8.5-10.1) RX-Oyx-H-Type Natriuretic Peptide 393 pg/mL (0-124) Triglycerides Level 123 mg/dL (0-150) Cholesterol Level 185 mg/dL (0-200) LDL Cholesterol, Calculated 123 mg/dL (0-100) VLDL Cholesterol, Calculated 25 mg/dL (0-40) Non-HDL Cholesterol Calculated 148 mg/dL (0-129) HDL Cholesterol 37 mg/dL (40-60) Cholesterol/HDL Ratio 5.0 Glucose (Fingerstick) 243 mg/dL (70-99) Test 08/22/18 19:37 08/23/18 05:00 08/23/18 07:37 Glucose (Fingerstick) 358 mg/dL (70-99) 165 mg/dL (70-99) Sodium Level 139 mmol/L (136-145) Potassium Level 5.0 mmol/L (3.5-5.1) Chloride Level 101 mmol/L (98-107) Carbon Dioxide Level 32 mmol/L (21-32) Anion Gap 6 (6-14) Blood Urea Nitrogen 32 mg/dL (8-26) Creatinine 1.4 mg/dL (0.7-1.3) Estimated GFR (Cockcroft-Gault) 52.1 Glucose Level 153 mg/dL (70-99) Calcium Level 8.8 mg/dL (8.5-10.1) Laboratory Tests Test 08/22/18 16:30 08/22/18 19:37 08/23/18 05:00 08/23/18 07:37 Glucose (Fingerstick) 243 mg/dL (70-99) 358 mg/dL (70-99) 165 mg/dL (70-99) Sodium Level 139 mmol/L (136-145) Potassium Level 5.0 mmol/L (3.5-5.1) Chloride Level 101 mmol/L (98-107) Carbon Dioxide Level 32 mmol/L (21-32) Anion Gap 6 (6-14) Blood Urea Nitrogen 32 mg/dL (8-26) Creatinine 1.4 mg/dL (0.7-1.3) Estimated GFR (Cockcroft-Gault) 52.1 Glucose Level 153 mg/dL (70-99) Calcium Level 8.8 mg/dL (8.5-10.1) Medications Active Scripts Medications Dose Route/Sig Max Daily Dose Days Date Category Metformin Hcl 500 Mg Tablet 500 Mg PO BIDWMEALS 08/21/18 Reported Amlodipine Besylate 5 Mg Tablet 5 Mg PO DAILY 08/21/18 Reported Proair Hfa Inhaler (Albuterol Sulfate) 8.5 Gm Hfa.aer.ad 2 Puff IH PRN QID PRN 06/15/15 Reported Metoprolol Tartrate 50 Mg Tablet 1 Tab PO BID 06/10/15 Reported Klor-Con M20 (Potassium Chloride) 20 Meq Tablet.er 20 Meq PO DAILYWBKFT 01/07/14 Rx Prinivil (Lisinopril) 20 Mg Tablet 20 Mg PO BID 01/07/14 Rx Lasix (Furosemide) 40 Mg Tablet 40 Mg PO DAILY 01/07/14 Rx [Aspirin] 81 MG Tablet.dr 81 Mg PO DAILYWBKFT 01/07/14 Rx Lipitor (Atorvastatin Calcium) 40 Mg Tablet 40 Mg PO QHS 01/07/14 Rx Impression . IMPRESSION: 1. Mzdhz-or-ilfjfjl hypoxemic hypercapnic respiratory failure. 2. Emxrx-nz-cikqvpo cor pulmonale. 3. Obstructive sleep apnea, not treated. 4. Morbid obesity, BMI of 41. 5. Status post abdominal aortic aneurysm repair, 05/2015 with bilateral lower extremity arterial bypass. 6. Type 2 diabetes. 7. Hypertension. 8. Coronary artery disease. Plan . DOES NOT QUALIFY FOR HOME TRILOGY NEEDS SLEEP STUDY CONTINUE BIPAP WILL TRY NASAL PILLOWS SEE BELOW 1. Continue BiPAP. We will adjust settings for comfort. 2. Diurese. 3. The patient instructed to avoid processed foods. 4. The patient instructed on the importance of monitoring caloric intake and start walking on a daily basis. 5. Solu-Medrol. 6. No need for antibiotics. 7. DVT and GI prophylaxis. 8. Nebulized treatments. 9. Outpatient polysomnogram with BiPAP titration. ROYA OLIVER MD August 23, 2018 09:41
[2018-08-23 11:00] VITALS: BP 146/72
--- NOTE | 2018-08-23 12:51 | NUR ---
RASHEEDA consulted for to assess for home trilogy with [facility]. SW faxed referral to [facility]. Pt states he has never been hospitalized with in the last year and does not have home 02. Spoke with Eugenio at [facility], Pt does not meet criteria for home trilogy at this time. Eugenio reported pt will need to sleep study as outpatient to assess home trilogy/bipap needs. RN and Physician notified.
[2018-08-23 15:00] VITALS: BP 99/60
[2018-08-23 19:25] VITALS: BP 116/53
[2018-08-23] MEDS: ATORVASTATIN CALCIUM 40 MG TABLET. PO SCH (20:48)
[2018-08-23] MEDS: INSULIN GLARGINE 300 UNITS/3 ML INSULN.PEN. SQ SCH (20:53)
[2018-08-23 23:32] VITALS: BP 123/69
[2018-08-24 03:35] VITALS: BP 133/70
[2018-08-24 04:17] LABS: CREATININE 1.3 mg/dL (0.7-1.3); GFR 56.7; POTASSIUM 5.2 mmol/L (3.5-5.1)
[2018-08-24 07:00] VITALS: BP 145/75
[2018-08-24] MEDS: IPRATRPIUM/ALBUTEROL 0.5/2.5MG 3 ML NEBU. NEB SCH ×4 (08:29→20:00)
[2018-08-24] MEDS: ENOXAPARIN 40 MG/0.4 ML SYRINGE. SQ SCH (09:00)
[2018-08-24] MEDS: METOPROLOL TART IMMED RELEASE 50 MG TABLET. PO SCH ×2 (09:46→22:25)
[2018-08-24] MEDS: ASPIRIN CHEWABLE 81 MG TABLET. PO SCH (09:47)
[2018-08-24] MEDS: amLODIPine BESYLATE 5 MG TABLET PO SCH (09:47)
[2018-08-24] MEDS: metFORMIN 500 MG TABLET PO SCH ×2 (09:47→16:50)
[2018-08-24] MEDS: FAMOTIDINE 20 MG TABLET. PO SCH ×2 (09:48→22:24)
[2018-08-24] MEDS: methylPREDNISolone SOD SUCC PF 125 MG/2 ML VIAL. IV SCH ×2 (09:49→22:24)
[2018-08-24] MEDS: FUROSEMIDE 40 MG/4 ML VIAL. IVP SCH ×2 (09:49→13:39)
--- NOTE | 2018-08-24 10:08 | PDOC ---
Provider Note Provider Note vss, feels better , scant sputum- still diffuse whezes w/ better airflow- K+ 5.2 - edema better- will continue iv stroids /lasix 1 more day, add chantix as he has used b4- NEEDS TO BE IN HOSPITAL JIM SAMS MD August 24, 2018 10:08
[2018-08-24 11:00] VITALS: BP 133/75
[2018-08-24] MEDS: VARENICLINE 0.5 MG TABLET. PO SCH (13:39)
--- NOTE | 2018-08-24 13:39 | PDOC ---
PULMONARY PROGRESS NOTES Subjective LESS SOA STILL WHEEZING STILL SOA WHILE WALKING IN ROOM Vitals Vital Signs Date Time Temp Pulse Resp B/P (MAP) Pulse Ox O2 Delivery O2 Flow Rate FiO2 08/24/18 11:53 96 Nasal Cannula 4.0 08/24/18 11:00 98.4 57 24 133/75 (94) 98.4 ROS: No Nausea, No Chest Pain, No Abdominal Pain General: Alert Lungs: Wheezing, Crackles Cardiovascular: S1, S2 Abdomen: Soft Neuro Exam: Alert Extremities: No Edema Skin: Warm Labs Laboratory Tests Test 08/22/18 16:30 08/22/18 19:37 08/23/18 05:00 08/23/18 07:37 Glucose (Fingerstick) 243 mg/dL (70-99) 358 mg/dL (70-99) 165 mg/dL (70-99) Sodium Level 139 mmol/L (136-145) Potassium Level 5.0 mmol/L (3.5-5.1) Chloride Level 101 mmol/L (98-107) Carbon Dioxide Level 32 mmol/L (21-32) Anion Gap 6 (6-14) Blood Urea Nitrogen 32 mg/dL (8-26) Creatinine 1.4 mg/dL (0.7-1.3) Estimated GFR (Cockcroft-Gault) 52.1 Glucose Level 153 mg/dL (70-99) Calcium Level 8.8 mg/dL (8.5-10.1) Test 08/23/18 12:09 08/23/18 17:03 08/23/18 20:42 08/24/18 03:30 Glucose (Fingerstick) 170 mg/dL (70-99) 165 mg/dL (70-99) 180 mg/dL (70-99) Sodium Level 139 mmol/L (136-145) Potassium Level 5.2 mmol/L (3.5-5.1) Chloride Level 101 mmol/L (98-107) Carbon Dioxide Level 34 mmol/L (21-32) Anion Gap 4 (6-14) Blood Urea Nitrogen 35 mg/dL (8-26) Creatinine 1.3 mg/dL (0.7-1.3) Estimated GFR (Cockcroft-Gault) 56.7 Glucose Level 154 mg/dL (70-99) Calcium Level 9.0 mg/dL (8.5-10.1) Test 08/24/18 07:53 08/24/18 10:54 Glucose (Fingerstick) 143 mg/dL (70-99) 165 mg/dL (70-99) Laboratory Tests Test 08/23/18 17:03 08/23/18 20:42 08/24/18 03:30 08/24/18 07:53 Glucose (Fingerstick) 165 mg/dL (70-99) 180 mg/dL (70-99) 143 mg/dL (70-99) Sodium Level 139 mmol/L (136-145) Potassium Level 5.2 mmol/L (3.5-5.1) Chloride Level 101 mmol/L (98-107) Carbon Dioxide Level 34 mmol/L (21-32) Anion Gap 4 (6-14) Blood Urea Nitrogen 35 mg/dL (8-26) Creatinine 1.3 mg/dL (0.7-1.3) Estimated GFR (Cockcroft-Gault) 56.7 Glucose Level 154 mg/dL (70-99) Calcium Level 9.0 mg/dL (8.5-10.1) Test 08/24/18 10:54 Glucose (Fingerstick) 165 mg/dL (70-99) Medications Active Scripts Medications Dose Route/Sig Max Daily Dose Days Date Category Metformin Hcl 500 Mg Tablet 500 Mg PO BIDWMEALS 08/21/18 Reported Amlodipine Besylate 5 Mg Tablet 5 Mg PO DAILY 08/21/18 Reported Proair Hfa Inhaler (Albuterol Sulfate) 8.5 Gm Hfa.aer.ad 2 Puff IH PRN QID PRN 06/15/15 Reported Metoprolol Tartrate 50 Mg Tablet 1 Tab PO BID 06/10/15 Reported Klor-Con M20 (Potassium Chloride) 20 Meq Tablet.er 20 Meq PO DAILYWBKFT 01/07/14 Rx Prinivil (Lisinopril) 20 Mg Tablet 20 Mg PO BID 01/07/14 Rx Lasix (Furosemide) 40 Mg Tablet 40 Mg PO DAILY 01/07/14 Rx [Aspirin] 81 MG Tablet.dr 81 Mg PO DAILYWBKFT 01/07/14 Rx Lipitor (Atorvastatin Calcium) 40 Mg Tablet 40 Mg PO QHS 01/07/14 Rx Impression . IMPRESSION: 1. Cafsz-bl-ihxbovn hypoxemic hypercapnic respiratory failure. 2. Xvdlu-cl-kabnikb cor pulmonale. 3. Obstructive sleep apnea, not treated. 4. Morbid obesity, BMI of 41. 5. Status post abdominal aortic aneurysm repair, 05/2015 with bilateral lower extremity arterial bypass. 6. Type 2 diabetes. 7. Hypertension. 8. Coronary artery disease. Plan . DOES NOT QUALIFY FOR HOME TRILOGY ACCORDING TO INSURANCE VERY COMPLEX SITUATION I'AM AFRAID PT WILL BE READMITTED WITH RECURRENT ACUTE COR [place] WITH OUT HOME BIPAP SLEEP STUDY WILL BE SET UP ELENA COMPLEX MEDICAL DECISION WILL CONTINUE DIURESING, QHS BIPAP I MADE ADJUSTMENTS ON PRESSURE WILL CHECK AN NOCTURNAL DESAT NASAL PILLOW NOT AVAILABLE IN HOUSE TAPER PRED AVOID PROCESS FOODS START WALKING PROGRAM ONCE D/C ANSWERED ALL QUESTION ROYA OLIVER MD August 24, 2018 13:39
[2018-08-24 14:36] VITALS: BP 121/63
[2018-08-24 19:15] VITALS: BP 146/74
[2018-08-24] MEDS: ATORVASTATIN CALCIUM 40 MG TABLET. PO SCH (22:24)
[2018-08-24] MEDS: INSULIN GLARGINE 300 UNITS/3 ML INSULN.PEN. SQ SCH (22:35)
[2018-08-24 23:41] VITALS: BP 131/75
[2018-08-25] VITALS (8 sets, daily range): BP systolic 133–174; BP diastolic 77–93
[2018-08-25] MEDS: IPRATRPIUM/ALBUTEROL 0.5/2.5MG 3 ML NEBU. NEB SCH ×4 (07:55→19:40)
--- NOTE | 2018-08-25 08:09 | PDOC ---
Provider Note Provider Note vss, good diuresis,no new sxs- still some mild wheeze, edema less- repeat K+, last 5.2- will do 6 min walk, po pred now- nelson study re need for home bipap is most importaant need JIM SAMS MD August 25, 2018 08:08
[2018-08-25 08:50] LABS: CALCIUM 9.2 mg/dL (8.5-10.1); CREATININE 1.4 mg/dL (0.7-1.3); GFR 52.1; POTASSIUM 5.1 mmol/L (3.5-5.1)
[2018-08-25] MEDS: ASPIRIN CHEWABLE 81 MG TABLET. PO SCH (09:30)
[2018-08-25] MEDS: metFORMIN 500 MG TABLET PO SCH ×2 (09:30→17:27)
[2018-08-25] MEDS: METOPROLOL TART IMMED RELEASE 50 MG TABLET. PO SCH ×2 (09:31→20:48)
[2018-08-25] MEDS: VARENICLINE 0.5 MG TABLET. PO SCH (09:31)
[2018-08-25] MEDS: amLODIPine BESYLATE 5 MG TABLET PO SCH (09:32)
[2018-08-25] MEDS: FUROSEMIDE 40 MG/4 ML VIAL. IVP SCH ×2 (09:37→14:39)
[2018-08-25] MEDS: FAMOTIDINE 20 MG TABLET. PO SCH ×2 (09:37→20:48)
[2018-08-25] MEDS: predniSONE 10 MG TABLET PO SCH (09:38)
[2018-08-25 13:23] LABS: BASE EXCESS ABG 8 mmol/L (-3-3); HCO3 ABG 35 mmol/L (21-28); PCO2 ABG 56 mmHg (35-46); PO2 ABG 74 mmHg (75-108)
[2018-08-25 13:25] LABS: FIO2 ABG 36%
--- NOTE | 2018-08-25 14:49 | PDOC ---
PULMONARY PROGRESS NOTES Subjective STILL SOA WITH EXERTION EDEMA IMPROVED Vitals Vital Signs Date Time Temp Pulse Resp B/P (MAP) Pulse Ox O2 Delivery O2 Flow Rate FiO2 08/25/18 11:46 98.1 66 20 147/79 (101) 93 BiPAP/CPAP 98.1 08/25/18 11:19 4.0 ROS: No Nausea, No Chest Pain, No Abdominal Pain General: Alert Lungs: Crackles Cardiovascular: S1, S2 Abdomen: Soft Neuro Exam: Alert Extremities: No Edema Skin: Warm Labs Laboratory Tests Test 08/23/18 17:03 08/23/18 20:42 08/24/18 03:30 08/24/18 07:53 Glucose (Fingerstick) 165 mg/dL (70-99) 180 mg/dL (70-99) 143 mg/dL (70-99) Sodium Level 139 mmol/L (136-145) Potassium Level 5.2 mmol/L (3.5-5.1) Chloride Level 101 mmol/L (98-107) Carbon Dioxide Level 34 mmol/L (21-32) Anion Gap 4 (6-14) Blood Urea Nitrogen 35 mg/dL (8-26) Creatinine 1.3 mg/dL (0.7-1.3) Estimated GFR (Cockcroft-Gault) 56.7 Glucose Level 154 mg/dL (70-99) Calcium Level 9.0 mg/dL (8.5-10.1) Test 08/24/18 10:54 08/24/18 16:40 08/24/18 19:30 08/25/18 07:28 Glucose (Fingerstick) 165 mg/dL (70-99) 202 mg/dL (70-99) 277 mg/dL (70-99) 139 mg/dL (70-99) Test 08/25/18 08:30 08/25/18 11:21 08/25/18 13:08 Sodium Level 144 mmol/L (136-145) Potassium Level 5.1 mmol/L (3.5-5.1) Chloride Level 103 mmol/L (98-107) Carbon Dioxide Level 37 mmol/L (21-32) Anion Gap 4 (6-14) Blood Urea Nitrogen 35 mg/dL (8-26) Creatinine 1.4 mg/dL (0.7-1.3) Estimated GFR (Cockcroft-Gault) 52.1 Glucose Level 164 mg/dL (70-99) Calcium Level 9.2 mg/dL (8.5-10.1) Glucose (Fingerstick) 158 mg/dL (70-99) Arterial Blood pH 7.41 (7.35-7.45) Arterial Blood pCO2 at Patient Temp 56 mmHg (35-46) Arterial Blood pO2 at Patient Temp 74 mmHg (75-108) Arterial Blood HCO3 35 mmol/L (21-28) Arterial Blood Base Excess 8 mmol/L (-3-3) FiO2 36% Laboratory Tests Test 08/24/18 16:40 08/24/18 19:30 08/25/18 07:28 08/25/18 08:30 Glucose (Fingerstick) 202 mg/dL (70-99) 277 mg/dL (70-99) 139 mg/dL (70-99) Sodium Level 144 mmol/L (136-145) Potassium Level 5.1 mmol/L (3.5-5.1) Chloride Level 103 mmol/L (98-107) Carbon Dioxide Level 37 mmol/L (21-32) Anion Gap 4 (6-14) Blood Urea Nitrogen 35 mg/dL (8-26) Creatinine 1.4 mg/dL (0.7-1.3) Estimated GFR (Cockcroft-Gault) 52.1 Glucose Level 164 mg/dL (70-99) Calcium Level 9.2 mg/dL (8.5-10.1) Test 08/25/18 11:21 08/25/18 13:08 Glucose (Fingerstick) 158 mg/dL (70-99) Arterial Blood pH 7.41 (7.35-7.45) Arterial Blood pCO2 at Patient Temp 56 mmHg (35-46) Arterial Blood pO2 at Patient Temp 74 mmHg (75-108) Arterial Blood HCO3 35 mmol/L (21-28) Arterial Blood Base Excess 8 mmol/L (-3-3) FiO2 36% Medications Active Scripts Medications Dose Route/Sig Max Daily Dose Days Date Category Metformin Hcl 500 Mg Tablet 500 Mg PO BIDWMEALS 08/21/18 Reported Amlodipine Besylate 5 Mg Tablet 5 Mg PO DAILY 08/21/18 Reported Proair Hfa Inhaler (Albuterol Sulfate) 8.5 Gm Hfa.aer.ad 2 Puff IH PRN QID PRN 06/15/15 Reported Metoprolol Tartrate 50 Mg Tablet 1 Tab PO BID 06/10/15 Reported Klor-Con M20 (Potassium Chloride) 20 Meq Tablet.er 20 Meq PO DAILYWBKFT 01/07/14 Rx Prinivil (Lisinopril) 20 Mg Tablet 20 Mg PO BID 01/07/14 Rx Lasix (Furosemide) 40 Mg Tablet 40 Mg PO DAILY 01/07/14 Rx [Aspirin] 81 MG Tablet.dr 81 Mg PO DAILYWBKFT 01/07/14 Rx Lipitor (Atorvastatin Calcium) 40 Mg Tablet 40 Mg PO QHS 01/07/14 Rx Impression . IMPRESSION: 1. Jrmzj-sw-opeuyxs hypoxemic hypercapnic respiratory failure. 2. Tzhpp-ls-cbnsgfs cor pulmonale. 3. Obstructive sleep apnea, not treated. 4. Morbid obesity, BMI of 41. 5. Status post abdominal aortic aneurysm repair, 05/2015 with bilateral lower extremity arterial bypass. 6. Type 2 diabetes. 7. Hypertension. 8. Coronary artery disease. Plan . 08/25 PT CONFUSED LAST KAYLYN COULD NOT GET ADEQUATE NOCT DESAT ABG NOTED C02 BETTER WILL CHECK NOCT DESAT ON RA HOME IN AM OUT PT SLEEP STUDY 08/24 DOES NOT QUALIFY FOR HOME TRILOGY ACCORDING TO INSURANCE VERY COMPLEX SITUATION I'AM AFRAID PT WILL BE READMITTED WITH RECURRENT ACUTE COR PULMONALE WITH OUT HOME BIPAP SLEEP STUDY WILL BE SET UP [facility] COMPLEX MEDICAL DECISION WILL CONTINUE DIURESING, QHS BIPAP I MADE ADJUSTMENTS ON PRESSURE WILL CHECK AN NOCTURNAL DESAT NASAL PILLOW NOT AVAILABLE IN HOUSE TAPER PRED AVOID PROCESS FOODS START WALKING PROGRAM ONCE D/C ANSWERED ALL QUESTION ROYA OLIVER MD August 25, 2018 14:49
[2018-08-25] MEDS: ATORVASTATIN CALCIUM 40 MG TABLET. PO SCH (20:47)
[2018-08-25] MEDS ORDERED: INSULIN GLARGINE 300 UNITS/3 ML INSULN.PEN. SQ SCH (21:00)
[2018-08-26 03:51] VITALS: BP 146/62
[2018-08-26] MEDS: predniSONE 10 MG TABLET PO SCH (06:32)
[2018-08-26 07:00] VITALS: BP 130/81
--- NOTE | 2018-08-26 07:50 | PDOC ---
Provider Note Provider Note vss, no temp, 6 min walk na- edema down , po lasix now- needs home bipap and proper O2 dosage for dc-rduce pred also- home when bipap/cpap arranged JIM SAMS MD August 26, 2018 07:50
[2018-08-26] MEDS: IPRATRPIUM/ALBUTEROL 0.5/2.5MG 3 ML NEBU. NEB SCH ×3 (08:11→15:41)
[2018-08-26] MEDS: metFORMIN 500 MG TABLET PO SCH (08:34)
[2018-08-26] MEDS: FAMOTIDINE 20 MG TABLET. PO SCH (08:34)
[2018-08-26 08:35] VITALS: BP 130/81
[2018-08-26] MEDS: ASPIRIN CHEWABLE 81 MG TABLET. PO SCH (08:35)
[2018-08-26] MEDS: amLODIPine BESYLATE 5 MG TABLET PO SCH (08:35)
[2018-08-26] MEDS: METOPROLOL TART IMMED RELEASE 50 MG TABLET. PO SCH (08:35)
--- NOTE | 2018-08-26 08:40 | PDOC ---
PULMONARY PROGRESS NOTES Subjective STILL SOA WITH EXERTION EDEMA IMPROVED Vitals Vital Signs Date Time Temp Pulse Resp B/P (MAP) Pulse Ox O2 Delivery O2 Flow Rate FiO2 08/26/18 08:35 97 130/81 08/26/18 08:14 90 Nasal Cannula 4.0 08/26/18 07:00 98.4 20 98.4 ROS: No Nausea, No Chest Pain, No Abdominal Pain General: Alert Lungs: Crackles Cardiovascular: S1, S2 Abdomen: Soft Neuro Exam: Alert Extremities: No Edema Skin: Warm Labs Laboratory Tests Test 08/24/18 10:54 08/24/18 16:40 08/24/18 19:30 08/25/18 07:28 Glucose (Fingerstick) 165 mg/dL (70-99) 202 mg/dL (70-99) 277 mg/dL (70-99) 139 mg/dL (70-99) Test 08/25/18 08:30 08/25/18 11:21 08/25/18 13:08 08/25/18 16:44 Sodium Level 144 mmol/L (136-145) Potassium Level 5.1 mmol/L (3.5-5.1) Chloride Level 103 mmol/L (98-107) Carbon Dioxide Level 37 mmol/L (21-32) Anion Gap 4 (6-14) Blood Urea Nitrogen 35 mg/dL (8-26) Creatinine 1.4 mg/dL (0.7-1.3) Estimated GFR (Cockcroft-Gault) 52.1 Glucose Level 164 mg/dL (70-99) Calcium Level 9.2 mg/dL (8.5-10.1) Glucose (Fingerstick) 158 mg/dL (70-99) 167 mg/dL (70-99) O2 Saturation % (92-99) Arterial Blood pH 7.41 (7.35-7.45) Arterial Blood pCO2 at Patient Temp 56 mmHg (35-46) Arterial Blood pO2 at Patient Temp 74 mmHg (75-108) Arterial Blood HCO3 35 mmol/L (21-28) Arterial Blood Base Excess 8 mmol/L (-3-3) FiO2 36% Test 08/25/18 20:06 08/26/18 07:41 Glucose (Fingerstick) 222 mg/dL (70-99) 98 mg/dL (70-99) Laboratory Tests Test 08/25/18 11:21 08/25/18 13:08 08/25/18 16:44 08/25/18 20:06 Glucose (Fingerstick) 158 mg/dL (70-99) 167 mg/dL (70-99) 222 mg/dL (70-99) O2 Saturation % (92-99) Arterial Blood pH 7.41 (7.35-7.45) Arterial Blood pCO2 at Patient Temp 56 mmHg (35-46) Arterial Blood pO2 at Patient Temp 74 mmHg (75-108) Arterial Blood HCO3 35 mmol/L (21-28) Arterial Blood Base Excess 8 mmol/L (-3-3) FiO2 36% Test 08/26/18 07:41 Glucose (Fingerstick) 98 mg/dL (70-99) Medications Active Scripts Medications Dose Route/Sig Max Daily Dose Days Date Category Metformin Hcl 500 Mg Tablet 500 Mg PO BIDWMEALS 08/21/18 Reported Amlodipine Besylate 5 Mg Tablet 5 Mg PO DAILY 08/21/18 Reported Proair Hfa Inhaler (Albuterol Sulfate) 8.5 Gm Hfa.aer.ad 2 Puff IH PRN QID PRN 06/15/15 Reported Metoprolol Tartrate 50 Mg Tablet 1 Tab PO BID 06/10/15 Reported Klor-Con M20 (Potassium Chloride) 20 Meq Tablet.er 20 Meq PO DAILYWBKFT 01/07/14 Rx Prinivil (Lisinopril) 20 Mg Tablet 20 Mg PO BID 01/07/14 Rx Lasix (Furosemide) 40 Mg Tablet 40 Mg PO DAILY 01/07/14 Rx [Aspirin] 81 MG Tablet.dr 81 Mg PO DAILYWBKFT 01/07/14 Rx Lipitor (Atorvastatin Calcium) 40 Mg Tablet 40 Mg PO QHS 01/07/14 Rx Impression . IMPRESSION: 1. Husuw-sr-sotacyt hypoxemic hypercapnic respiratory failure. 2. Bdcrp-xr-litrral cor pulmonale. 3. Obstructive sleep apnea, not treated. 4. Morbid obesity, BMI of 41. 5. Status post abdominal aortic aneurysm repair, 05/2015 with bilateral lower extremity arterial bypass. 6. Type 2 diabetes. 7. Hypertension. 8. Coronary artery disease. Plan . 08/25 PT CONFUSED LAST KAYLYN COULD NOT GET ADEQUATE NOCT DESAT ABG NOTED C02 BETTER WILL CHECK NOCT DESAT ON RA HOME IN AM OUT PT SLEEP STUDY 08/24 DOES NOT QUALIFY FOR HOME TRILOGY ACCORDING TO INSURANCE VERY COMPLEX SITUATION I'AM AFRAID PT WILL BE READMITTED WITH RECURRENT ACUTE COR PULMONALE WITH OUT HOME BIPAP SLEEP STUDY WILL BE SET UP [facility] COMPLEX MEDICAL DECISION WILL CONTINUE DIURESING, QHS BIPAP I MADE ADJUSTMENTS ON PRESSURE WILL CHECK AN NOCTURNAL DESAT NASAL PILLOW NOT AVAILABLE IN HOUSE TAPER PRED AVOID PROCESS FOODS START WALKING PROGRAM ONCE D/C ANSWERED ALL QUESTION ROYA OLIVER MD August 26, 2018 08:40
[2018-08-26] MEDS ORDERED: FUROSEMIDE 40 MG TABLET. PO SCH (09:00)
[2018-08-26] MEDS ORDERED: VARENICLINE 0.5 MG TABLET. PO SCH (09:00)
--- NOTE | 2018-08-26 12:29 | NUR ---
RASHEEDA faxed orders for home 02 to [facility]. Awaiting to hear back on approval. Addendum: 08/26/18 at 1452 by ROSIE VANESSA RASHEEDA provided Pt with an 02 tank to take home and informed Pt/family to call [facility] as he is leaving [facility] so they can provide him with concentrator and 02 equipment. RN notified.
[2018-08-26 12:58] LABS: BASE EXCESS ABG 5 mmol/L (-3-3); HCO3 ABG 31 mmol/L (21-28); PCO2 ABG 49 mmHg (35-46); PO2 ABG 71 mmHg (75-108); SAT O2 ABG 94 % (92-99)
[2018-08-26 13:03] LABS: FIO2 ABG 36
--- NOTE | 2018-08-26 17:57 | RESP ---
DATE OF SERVICE: 08/25/2018 The patient underwent nocturnal desaturation study. Total time recorded was 6 hours and 34 minutes. Highest saturation was 97, lowest was 86. Total time between 80% and 90% was 11 minutes and 40 seconds. This was performed on 3 liters of oxygen supplementation. IMPRESSION: Mild periods of oxyhemoglobin desaturation, doing a nocturnal desaturation study with 3 liters of oxygen supplementation. PLAN: Recommend polysomnogram. ROYA OLIVER MD DR: CAROLINE/torres JOB#: [id number] / [id number] JIM Laguerre MD
--- NOTE | 2018-08-26 22:38 | DS ---
DATE OF DISCHARGE: 08/26/2018 HOSPITAL SUMMARY: A 58-year-old white male with known COPD, chronic tobacco abuse, diabetes and coronary artery disease; came in with hypoxia, weakness, fatigue and wheezing. Chest x-rays and CT scans were unremarkable, but he had severe respiratory acidosis overnight and required BiPAP every night with oxygen relatively high flow during the day. He responded gradually to IV steroids, IV Lasix for the cor pulmonale edema and was are able to transition to oral medicines at the time of discharge. Oxygen needs are high as per Dr. Corrales's prescription both at rest and with exercise and at night and he will need immediate sleep study as an outpatient to evaluate the need for CPAP or BiPAP, which has likely been needed for many months, Chantix was also started for tobacco avoidance as well. FINAL DIAGNOSES: 1. Acute respiratory failure secondary to advanced chronic obstructive pulmonary disease. 2. Severe respiratory acidosis secondary to chronic obstructive pulmonary disease and untreated sleep apnea. 3. Cor pulmonale. 4. Chronic tobacco abuse. 5. Type 2 diabetes, mild. 6. 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 OPERATIONS AND PROCEDURES: None. COMPLICATIONS: None. CONSULTATIONS: Flaco Corrales M.D. DISPOSITION: Home oxygen will be prescribed by Dr. Corrales. Prednisone taper over the next 7 days, Lasix 40 mg every other day now that he has had a good diuresis and continue home meds the same and we will add Chantix as well, which he has used in the past. Dr. Corrales will arrange home and office sleep study and I will see him in the office in 1 week. He knows that continued tobacco use could certainly be fatal for him. JIM SAMS MD DR: BI/torres JOB#: [id number] / [id number]
== END 2018-08-26 17:06 | disposition home or self-care (01) | DRG 189 ==
LOC: 6 SOUTH 19:59
PROVIDERS: ADMIT Family Medicine; ATTEND Family Medicine
PROC: 5A09357 Assistance with Respiratory Ventilation, Less than 24 Consecutive Hours, Continuous Positive Airway Pressure (ICD-10-PCS; 2018-08-21)
PROC: 5A09357 Assistance with Respiratory Ventilation, Less than 24 Consecutive Hours, Continuous Positive Airway Pressure (ICD-10-PCS; 2018-08-22)
PROC: 5A09357 Assistance with Respiratory Ventilation, Less than 24 Consecutive Hours, Continuous Positive Airway Pressure (ICD-10-PCS; 2018-08-23)
PROC: 5A09357 Assistance with Respiratory Ventilation, Less than 24 Consecutive Hours, Continuous Positive Airway Pressure (ICD-10-PCS; principal; 2018-08-24)
PROC: 5A09357 Assistance with Respiratory Ventilation, Less than 24 Consecutive Hours, Continuous Positive Airway Pressure (ICD-10-PCS; 2018-08-25)
DX: J96.21 Acute and chronic respiratory failure with hypoxia (principal); J44.1 Chronic obstructive pulmonary disease with (acute) exacerbation; I42.9 Cardiomyopathy, unspecified; I13.0 Hypertensive heart and chronic kidney disease with heart failure and stage 1 through stage 4 chronic kidney disease, or unspecified chronic kidney disease; I50.32 Chronic diastolic (congestive) heart failure; Z68.41 Body mass index [BMI] 40.0-44.9, adult; E87.2 Acidosis; E11.51 Type 2 diabetes mellitus with diabetic peripheral angiopathy without gangrene; E11.22 Type 2 diabetes mellitus with diabetic chronic kidney disease; I27.20 Pulmonary hypertension, unspecified; E66.01 Morbid (severe) obesity due to excess calories; I27.81 Cor pulmonale (chronic); D75.1 Secondary polycythemia; G47.33 Obstructive sleep apnea (adult) (pediatric); I25.10 Atherosclerotic heart disease of native coronary artery without angina pectoris; E78.5 Hyperlipidemia, unspecified; F17.210 Nicotine dependence, cigarettes, uncomplicated; I87.2 Venous insufficiency (chronic) (peripheral); N18.9 Chronic kidney disease, unspecified; F41.9 Anxiety disorder, unspecified; M19.90 Unspecified osteoarthritis, unspecified site; J96.22 Acute and chronic respiratory failure with hypercapnia; Z79.899 Other long term (current) drug therapy; Z82.49 Family history of ischemic heart disease and other diseases of the circulatory system; Z83.3 Family history of diabetes mellitus; Z91.041 Radiographic dye allergy status; Z86.79 Personal history of other diseases of the circulatory system
CPT/HCPCS: 36415; 36600; 71045; 71046; 80048; 80053; 80061; 82805; 82962; 83880; 84443; 85025; 93005; 93306; 94618; 94640; 94660; 94760; 94799; J1650; J1815; J1940; J2930; J7512; J7613; J7620

== ENCOUNTER 2018-09-02 07:23 | Inpatient (IN) | payer MEDICARE, OTHER ==
[~2018-09-02] VITALS: Ht 182.9 cm; Wt 138.3 kg
[~2018-09-02 07:23] MED LIST changes: +AMLO5TAB10 PO; +METF500T16 PO
[2018-09-02] MEDS ORDERED: IPRATRPIUM/ALBUTEROL 0.5/2.5MG 3 ML NEBU. NEB ONE (08:00)
[2018-09-02] MEDS ORDERED: methylPREDNISolone SOD SUCC PF 125 MG/2 ML VIAL. IV ONE (08:00)
[2018-09-02 08:14] LABS: CALCIUM 9.2 mg/dL (8.5-10.1); CREATININE 1.1 mg/dL (0.7-1.3); GFR 68.8
--- NOTE | 2018-09-02 08:17 | EKG ---
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
[2018-09-02 08:22] LABS: BASE EXCESS ABG 7 mmol/L (-3-3); HCO3 ABG 36 mmol/L (21-28); PO2 ABG 73 mmHg (75-108); SAT O2 ABG 94 % (92-99)
[2018-09-02 08:22] LABS: ALBUMIN 2.7 g/dL (3.4-5.0); ALBUMIN/GLOBULIN RATIO 0.7 (1.0-1.7); TOTAL BILIRUBIN 0.9 mg/dL (0.2-1.0); TOTAL PROTEIN 6.5 g/dL (6.4-8.2)
--- NOTE | 2018-09-02 08:24 | RAD ---
PORTABLE CHEST 1V Clinical indications: Shortness of breath. COMPARISON: August 23, 2018 Findings: No acute lung infiltrate or pleural effusion or pulmonary edema or lung mass or pneumothorax is seen. The heart size, pulmonary vasculature, mediastinum and both jessee are stable. Impression: No acute radiographic abnormality is seen. Electronically signed by: Tyree Chau MD (09/02/2018 8:21 AM) [id number]
[2018-09-02 08:25] LABS: PCO2 ABG 63 mmHg (35-46)
[2018-09-02 08:30] LABS: POTASSIUM 4.7 mmol/L (3.5-5.1)
[2018-09-02] MEDS ORDERED: IV NORMAL SALINE 500ML BAG 500 ML IV ONE (08:30)
--- NOTE | 2018-09-02 09:26 | PHYS DOC ---
Past Medical History Past Medical History: CAD, COPD, Diabetes-Type II, Hypertension Additional Past Medical Histor: AAA, OBESITY Past Surgical History: Other Additional Past Surgical Histo: AAA REPAIR Alcohol Use: None Drug Use: None Adult General Chief Complaint Chief Complaint: HALLUCINATIONS AUDIBLE/VISUAL HPI HPI Patient is a 58 year old male who is presenting with chief complaint of hallucinations. His serum history of COPD on home oxygen 4 L not yet getting CPAP at night apparently mostly in the morning sometimes intermittently throughout the day will have intermittent hallucinations thinks somebody is there who is not actually there talks about people or doesn't make sense with any comes out of it at times as well. Currently in the emergency room tells me he is at his mental status baseline he is a and O 3 for me Review of Systems Review of Systems Constitutional: Denies fever or chills [] Eyes: Denies change in visual acuity, redness, or eye pain [] Shortness of breath seems worse last few days as well according to the . Apparently he has been off prednisone for a few days Cardiovascular: No additional information not addressed in HPI [] GI: Denies abdominal pain, nausea, vomiting, bloody stools or diarrhea [] Musculoskeletal: Denies back pain or joint pain [] Integument: Denies rash or skin lesions [] Neurologic: Denies headache, focal weakness or sensory changes [] All other systems were reviewed and found to be within normal limits, except as documented in this note. Current Medications Current Medications Current Medications Medications (Trade) Dose Ordered Sig/Pat Start Time Stop Time Status Last Admin Dose Admin Albuterol/ Ipratropium (Duoneb) 3 ml 1X ONCE 09/02/18 08:00 09/02/18 08:01 DC 09/02/18 08:17 3 ML Methylprednisolone Sodium Succinate (SOLU-Medrol 125MG VIAL) 125 mg 1X ONCE 09/02/18 08:00 09/02/18 08:01 DC 09/02/18 08:11 125 MG Sodium Chloride 500 ml @ 500 mls/hr 1X ONCE 09/02/18 08:30 09/02/18 09:29 09/02/18 08:32 500 MLS/HR Allergies Allergies Allergies Coded Allergies Type Severity Reaction Last Updated Verified Iodinated Contrast- Oral and IV Dye Allergy Intermediate BLOOD PRESSURE DROPPED & PASSED OUT 12/29/15 Yes Physical Exam Physical Exam Constitutional: Well developed, well nourished, moderate distress noted HENT: Normocephalic, atraumatic, bilateral external ears normal, oropharynx moist, no oral exudates, nose normal. [] Eyes: PERRLA, EOMI, conjunctiva injected, no discharge. [] Neck: Normal range of motion, no tenderness, supple, no stridor. [] Cardiovascular:Heart rate regular rhythm, no murmur [] Lungs & Thorax: Wheezing bilaterally mild increase in respiratory effort Abdomen: Bowel sounds normal, soft, no tenderness, no masses, no pulsatile masses. [] Skin: Chronic skin changes Back: No tenderness, no CVA tenderness. [] Extremities: No tenderness, no cyanosis, no clubbing, ROM intact, 1+ edema Neurologic: Alert and oriented X 3, normal motor function, normal sensory function, no focal deficits noted. [] Psychologic: Affect normal, judgement normal, mood normal. []Patient is calm and cooperative and denies hallucinations at this time Current Patient Data Vital Signs Vital Signs Date Time Temp Pulse Resp B/P (MAP) Pulse Ox O2 Delivery O2 Flow Rate FiO2 09/02/18 08:37 Nasal Cannula 5.0 09/02/18 08:32 74 93/60 (71) 95 09/02/18 08:29 22 09/02/18 07:23 98.2 98.2 Lab Values Laboratory Tests Test 09/02/18 07:36 09/02/18 08:15 Sodium Level 141 mmol/L (136-145) Potassium Level 4.7 mmol/L (3.5-5.1) Chloride Level 102 mmol/L (98-107) Carbon Dioxide Level 34 mmol/L (21-32) H Anion Gap 5 (6-14) L Blood Urea Nitrogen 20 mg/dL (8-26) Creatinine 1.1 mg/dL (0.7-1.3) Estimated GFR (Cockcroft-Gault) 68.8 BUN/Creatinine Ratio 18 (6-20) Glucose Level 108 mg/dL (70-99) H Calcium Level 9.2 mg/dL (8.5-10.1) Total Bilirubin 0.9 mg/dL (0.2-1.0) Aspartate Amino Transferase (AST) 16 U/L (15-37) Alanine Aminotransferase (ALT) 24 U/L (16-63) Alkaline Phosphatase 63 U/L (46-116) Troponin I Quantitative < 0.017 ng/mL (0.000-0.055) FC-Blj-Y-Type Natriuretic Peptide 46 pg/mL (0-124) Total Protein 6.5 g/dL (6.4-8.2) Albumin 2.7 g/dL (3.4-5.0) L Albumin/Globulin Ratio 0.7 (1.0-1.7) L O2 Saturation 94 % (92-99) Arterial Blood pH 7.37 (7.35-7.45) Arterial Blood pCO2 at Patient Temp 63 mmHg (35-46) *H Arterial Blood pO2 at Patient Temp 73 mmHg (75-108) L Arterial Blood HCO3 36 mmol/L (21-28) H Arterial Blood Base Excess 7 mmol/L (-3-3) H FiO2 5 lpm nc Laboratory Tests 09/02/18 07:36 EKG EKG Normal sinus rhythm rate 92 ischemic changes noted interpreted by me[] Radiology/Procedures Radiology/Procedures [] Impressions: Clinical indications: Shortness of breath. COMPARISON: August 23, 2018 Findings: No acute lung infiltrate or pleural effusion or pulmonary edema or lung mass or pneumothorax is seen. The heart size, pulmonary vasculature, mediastinum and both jessee are stable. Impression: No acute radiographic abnormality is seen. Electronically signed by: Tyree Chau MD (09/02/2018 8:21 AM) [id number] DICTATED and SIGNED BY: TYREE CHAU MD DATE: 09/02/18 0821 Course & Med Decision Making Course & Med Decision Making Pertinent Labs and Imaging studies reviewed. (See chart for details) []Interpretation of blood gas mostly compensated chronic respiratory acidosis. In summary this is a 58-year-old male on home oxygen COPD. Likely sleep apnea awaiting CPAP machine at home presenting with intermittent hallucinations to me sounds mostly like probably hypoxic related as it usually happening in the morning and then seems to go away once he is more awake. Does have some wheezing on exam mild increase in respiratory effort x-ray clear discussed with plan to readmit for COPD treatment and further evaluation and monitoring I spoke with Dr. Sams who requested a pulmonary consult as well f Cece Disclaimer Dragon Disclaimer This electronic medical record was generated, in whole or in part, using a voice recognition dictation system. Departure Departure Impression: Primary Impression: COPD (chronic obstructive pulmonary disease) Disposition: ADMITTED INPATIENT Admitting Physician: Jim Sams Condition: STABLE Referrals: JIM SAMS MD (PCP) WAYNE VAZQUEZ MD September 02, 2018 09:26
[2018-09-02] MEDS ORDERED: DOXYCYCLINE HYCLATE 100 MG in IV DEXTROSE 5% 100ML 100 ML IV ONE (09:30)
[2018-09-02 10:56] LABS: BASO % 0 % (0-3); EOS # 0.2 x10^3/uL (0.0-0.7); EOS % 2 % (0-3); HEMATOCRIT 52.7 % (39.0-53.0); HEMOGLOBIN 16.9 g/dL (13.0-17.5); LYMPH # 1.6 x10^3/uL (1.0-4.8); LYMPH % 21 % (24-48); MEAN CORPUSCULAR HEMOGLOBIN 31 pg (25-35); MEAN CORPUSCULAR HGB CONC 32 g/dL (31-37); MEAN CORPUSCULAR VOLUME 98 fL (79-100); MONO # 0.7 x10^3/uL (0.0-1.1); MONO % 9 % (0-9); NEUT # 5.1 x10^3uL (1.8-7.7); NEUT % 68 % (31-73); PLATELET COUNT 207 x10^3/uL (140-400); RED BLOOD COUNT 5.41 x10^6/uL (4.30-5.70); RED CELL DISTRIBUTION WIDTH 18.5 % (11.5-14.5); WHITE BLOOD COUNT 7.5 x10^3/uL (4.0-11.0)
[2018-09-02] MEDS ORDERED: IPRATRPIUM/ALBUTEROL 0.5/2.5MG 3 ML NEBU. NEB SCH (12:00)
[2018-09-02] MEDS ORDERED: UMEC1DIS IH (12:19)
[2018-09-02 12:50] VITALS: BP 119/77
[2018-09-02] MEDS ORDERED: FURO40TA4 PO (14:20)
[2018-09-02 15:00] VITALS: BP 145/58
[2018-09-02] MEDS: ALBUTEROL SULFATE 2.5 MG/3 ML NEBU. NEB SCH ×2 (15:54→20:01)
--- NOTE | 2018-09-02 17:29 | PDOC ---
PULMONARY PROGRESS NOTES Vitals Vital Signs Date Time Temp Pulse Resp B/P (MAP) Pulse Ox O2 Delivery O2 Flow Rate FiO2 09/02/18 15:54 96 Nasal Cannula 5.0 09/02/18 15:00 98.0 91 18 145/58 (87) 98.0 General: Alert Lungs: Crackles Cardiovascular: S1, S2 Abdomen: Soft Extremities: No Edema Labs Laboratory Tests Test 09/02/18 07:36 09/02/18 08:15 09/02/18 17:12 White Blood Count 7.5 x10^3/uL (4.0-11.0) Red Blood Count 5.41 x10^6/uL (4.30-5.70) Hemoglobin 16.9 g/dL (13.0-17.5) Hematocrit 52.7 % (39.0-53.0) Mean Corpuscular Volume 98 fL (79-100) Mean Corpuscular Hemoglobin 31 pg (25-35) Mean Corpuscular Hemoglobin Concent 32 g/dL (31-37) Red Cell Distribution Width 18.5 % (11.5-14.5) Platelet Count 207 x10^3/uL (140-400) Neutrophils (%) (Auto) 68 % (31-73) Lymphocytes (%) (Auto) 21 % (24-48) Monocytes (%) (Auto) 9 % (0-9) Eosinophils (%) (Auto) 2 % (0-3) Basophils (%) (Auto) 0 % (0-3) Neutrophils # (Auto) 5.1 x10^3uL (1.8-7.7) Lymphocytes # (Auto) 1.6 x10^3/uL (1.0-4.8) Monocytes # (Auto) 0.7 x10^3/uL (0.0-1.1) Eosinophils # (Auto) 0.2 x10^3/uL (0.0-0.7) Basophils # (Auto) 0.0 x10^3/uL (0.0-0.2) Sodium Level 141 mmol/L (136-145) Potassium Level 4.7 mmol/L (3.5-5.1) Chloride Level 102 mmol/L (98-107) Carbon Dioxide Level 34 mmol/L (21-32) Anion Gap 5 (6-14) Blood Urea Nitrogen 20 mg/dL (8-26) Creatinine 1.1 mg/dL (0.7-1.3) Estimated GFR (Cockcroft-Gault) 68.8 BUN/Creatinine Ratio 18 (6-20) Glucose Level 108 mg/dL (70-99) Calcium Level 9.2 mg/dL (8.5-10.1) Total Bilirubin 0.9 mg/dL (0.2-1.0) Aspartate Amino Transf (AST/SGOT) 16 U/L (15-37) Alanine Aminotransferase (ALT/SGPT) 24 U/L (16-63) Alkaline Phosphatase 63 U/L (46-116) Troponin I Quantitative < 0.017 ng/mL (0.000-0.055) JE-Vzo-U-Type Natriuretic Peptide 46 pg/mL (0-124) Total Protein 6.5 g/dL (6.4-8.2) Albumin 2.7 g/dL (3.4-5.0) Albumin/Globulin Ratio 0.7 (1.0-1.7) O2 Saturation 94 % (92-99) Arterial Blood pH 7.37 (7.35-7.45) Arterial Blood pCO2 at Patient Temp 63 mmHg (35-46) Arterial Blood pO2 at Patient Temp 73 mmHg (75-108) Arterial Blood HCO3 36 mmol/L (21-28) Arterial Blood Base Excess 7 mmol/L (-3-3) FiO2 5 lpm nc Glucose (Fingerstick) 270 mg/dL (70-99) Laboratory Tests Test 09/02/18 07:36 09/02/18 08:15 09/02/18 17:12 White Blood Count 7.5 x10^3/uL (4.0-11.0) Red Blood Count 5.41 x10^6/uL (4.30-5.70) Hemoglobin 16.9 g/dL (13.0-17.5) Hematocrit 52.7 % (39.0-53.0) Mean Corpuscular Volume 98 fL (79-100) Mean Corpuscular Hemoglobin 31 pg (25-35) Mean Corpuscular Hemoglobin Concent 32 g/dL (31-37) Red Cell Distribution Width 18.5 % (11.5-14.5) Platelet Count 207 x10^3/uL (140-400) Neutrophils (%) (Auto) 68 % (31-73) Lymphocytes (%) (Auto) 21 % (24-48) Monocytes (%) (Auto) 9 % (0-9) Eosinophils (%) (Auto) 2 % (0-3) Basophils (%) (Auto) 0 % (0-3) Neutrophils # (Auto) 5.1 x10^3uL (1.8-7.7) Lymphocytes # (Auto) 1.6 x10^3/uL (1.0-4.8) Monocytes # (Auto) 0.7 x10^3/uL (0.0-1.1) Eosinophils # (Auto) 0.2 x10^3/uL (0.0-0.7) Basophils # (Auto) 0.0 x10^3/uL (0.0-0.2) Sodium Level 141 mmol/L (136-145) Potassium Level 4.7 mmol/L (3.5-5.1) Chloride Level 102 mmol/L (98-107) Carbon Dioxide Level 34 mmol/L (21-32) Anion Gap 5 (6-14) Blood Urea Nitrogen 20 mg/dL (8-26) Creatinine 1.1 mg/dL (0.7-1.3) Estimated GFR (Cockcroft-Gault) 68.8 BUN/Creatinine Ratio 18 (6-20) Glucose Level 108 mg/dL (70-99) Calcium Level 9.2 mg/dL (8.5-10.1) Total Bilirubin 0.9 mg/dL (0.2-1.0) Aspartate Amino Transf (AST/SGOT) 16 U/L (15-37) Alanine Aminotransferase (ALT/SGPT) 24 U/L (16-63) Alkaline Phosphatase 63 U/L (46-116) Troponin I Quantitative < 0.017 ng/mL (0.000-0.055) WA-Nrl-H-Type Natriuretic Peptide 46 pg/mL (0-124) Total Protein 6.5 g/dL (6.4-8.2) Albumin 2.7 g/dL (3.4-5.0) Albumin/Globulin Ratio 0.7 (1.0-1.7) O2 Saturation 94 % (92-99) Arterial Blood pH 7.37 (7.35-7.45) Arterial Blood pCO2 at Patient Temp 63 mmHg (35-46) Arterial Blood pO2 at Patient Temp 73 mmHg (75-108) Arterial Blood HCO3 36 mmol/L (21-28) Arterial Blood Base Excess 7 mmol/L (-3-3) FiO2 5 lpm nc Glucose (Fingerstick) 270 mg/dL (70-99) Medications Active Scripts Medications Dose Route/Sig Max Daily Dose Days Date Category Furosemide 40 Mg Tablet 1 Tab PO EVERY OTHER DAY 09/02/18 Reported Anoro Ellipta 62.5-25 Mcg Inh (Umeclidinium Brm/Vilanterol Tr) 1 Each Disk.w.dev 1 Each IH DAILY08 09/02/18 Reported Metformin Hcl 500 Mg Tablet 500 Mg PO BIDWMEALS 08/21/18 Reported Amlodipine Besylate 5 Mg Tablet 5 Mg PO DAILY 08/21/18 Reported Proair Hfa Inhaler (Albuterol Sulfate) 8.5 Gm Hfa.aer.ad 2 Puff IH PRN QID PRN 06/15/15 Reported Metoprolol Tartrate 50 Mg Tablet 1 Tab PO BID 06/10/15 Reported Prinivil (Lisinopril) 20 Mg Tablet 20 Mg PO BID 01/07/14 Rx [Aspirin] 81 MG Tablet.dr 81 Mg PO DAILYWBKFT 01/07/14 Rx Lipitor (Atorvastatin Calcium) 40 Mg Tablet 40 Mg PO QHS 01/07/14 Rx Impression . FULL NOTE DICTATED RECURRENT HYPERCAPNIA RESP FAILURE ACUTE COR PULMONALE ROYA OLIVER MD September 02, 2018 17:29
[2018-09-02] MEDS: metFORMIN 500 MG TABLET PO SCH (17:43)
[2018-09-02 19:25] VITALS: BP 128/57
[2018-09-02] MEDS: BUDESONIDE 0.5 MG/2 ML NEBU. NEB SCH (20:01)
[2018-09-02] MEDS: LISINOPRIL 20 MG TABLET PO SCH (20:55)
[2018-09-02] MEDS: ATORVASTATIN CALCIUM 40 MG TABLET. PO SCH (20:56)
[2018-09-02] MEDS: METOPROLOL TART IMMED RELEASE 50 MG TABLET. PO SCH (20:57)
[2018-09-02 22:15] VITALS: BP 126/54
[2018-09-02 22:39] LABS: BILIRUBIN,URINE NEGATIVE (NEG); CLARITY,URINE CLEAR; COLOR,URINE YELLOW; NITRITE,URINE NEGATIVE (NEG); PROTEIN,URINE NEGATIVE (NEG-TRACE)
[2018-09-02 22:48] LABS: BACTERIA,URINE 0 /HPF (0-FEW); RBC,URINE OCC /HPF (0-2); SQUAMOUS EPITHELIAL CELL,UR OCC /LPF
[2018-09-03 05:38] LABS: BASE EXCESS ABG 4 mmol/L (-3-3); HCO3 ABG 27 mmol/L (21-28); PCO2 ABG 37 mmHg (35-46); PO2 ABG 89 mmHg (75-108); SAT O2 ABG 97 % (92-99)
[2018-09-03 05:49] LABS: FIO2 ABG 35
[2018-09-03 07:10] VITALS: BP 127/75
[2018-09-03] MEDS: BUDESONIDE 0.5 MG/2 ML NEBU. NEB SCH ×2 (07:59→20:00)
[2018-09-03] MEDS: ALBUTEROL SULFATE 2.5 MG/3 ML NEBU. NEB SCH ×4 (07:59→20:00)
--- NOTE | 2018-09-03 08:13 | PDOC ---
Provider Note Provider Note [id number] JIM SAMS MD September 03, 2018 08:13
[2018-09-03] MEDS: LISINOPRIL 20 MG TABLET PO SCH ×2 (08:41→22:17)
[2018-09-03] MEDS: metFORMIN 500 MG TABLET PO SCH ×2 (08:41→17:10)
[2018-09-03] MEDS: METOPROLOL TART IMMED RELEASE 50 MG TABLET. PO SCH ×2 (08:41→22:16)
[2018-09-03] MEDS: ASPIRIN ENTERIC COATED 81 MG TABLET.DR. PO SCH (08:41)
[2018-09-03] MEDS: amLODIPine BESYLATE 5 MG TABLET PO SCH (08:41)
--- NOTE | 2018-09-03 09:09 | PDOC ---
PULMONARY PROGRESS NOTES Subjective PT FEELS BETTER LESS SOA NOT CONFUSED TODAY Vitals Vital Signs Date Time Temp Pulse Resp B/P (MAP) Pulse Ox O2 Delivery O2 Flow Rate FiO2 09/03/18 08:41 78 127/75 09/03/18 07:59 95 Nasal Cannula 4.0 09/03/18 07:10 98.1 20 98.1 ROS: No Nausea, No Chest Pain, No Abdominal Pain, No Increase Cough General: Alert Lungs: Crackles Cardiovascular: S1, S2 Abdomen: Soft Neuro Exam: Alert Extremities: Other (EDEMA) Skin: Warm Labs Laboratory Tests Test 09/02/18 07:36 09/02/18 08:15 09/02/18 17:12 09/02/18 19:19 White Blood Count 7.5 x10^3/uL (4.0-11.0) Red Blood Count 5.41 x10^6/uL (4.30-5.70) Hemoglobin 16.9 g/dL (13.0-17.5) Hematocrit 52.7 % (39.0-53.0) Mean Corpuscular Volume 98 fL (79-100) Mean Corpuscular Hemoglobin 31 pg (25-35) Mean Corpuscular Hemoglobin Concent 32 g/dL (31-37) Red Cell Distribution Width 18.5 % (11.5-14.5) Platelet Count 207 x10^3/uL (140-400) Neutrophils (%) (Auto) 68 % (31-73) Lymphocytes (%) (Auto) 21 % (24-48) Monocytes (%) (Auto) 9 % (0-9) Eosinophils (%) (Auto) 2 % (0-3) Basophils (%) (Auto) 0 % (0-3) Neutrophils # (Auto) 5.1 x10^3uL (1.8-7.7) Lymphocytes # (Auto) 1.6 x10^3/uL (1.0-4.8) Monocytes # (Auto) 0.7 x10^3/uL (0.0-1.1) Eosinophils # (Auto) 0.2 x10^3/uL (0.0-0.7) Basophils # (Auto) 0.0 x10^3/uL (0.0-0.2) Sodium Level 141 mmol/L (136-145) Potassium Level 4.7 mmol/L (3.5-5.1) Chloride Level 102 mmol/L (98-107) Carbon Dioxide Level 34 mmol/L (21-32) Anion Gap 5 (6-14) Blood Urea Nitrogen 20 mg/dL (8-26) Creatinine 1.1 mg/dL (0.7-1.3) Estimated GFR (Cockcroft-Gault) 68.8 BUN/Creatinine Ratio 18 (6-20) Glucose Level 108 mg/dL (70-99) Calcium Level 9.2 mg/dL (8.5-10.1) Total Bilirubin 0.9 mg/dL (0.2-1.0) Aspartate Amino Transf (AST/SGOT) 16 U/L (15-37) Alanine Aminotransferase (ALT/SGPT) 24 U/L (16-63) Alkaline Phosphatase 63 U/L (46-116) Troponin I Quantitative < 0.017 ng/mL (0.000-0.055) RN-Ggo-E-Type Natriuretic Peptide 46 pg/mL (0-124) Total Protein 6.5 g/dL (6.4-8.2) Albumin 2.7 g/dL (3.4-5.0) Albumin/Globulin Ratio 0.7 (1.0-1.7) O2 Saturation 94 % (92-99) Arterial Blood pH 7.37 (7.35-7.45) Arterial Blood pCO2 at Patient Temp 63 mmHg (35-46) Arterial Blood pO2 at Patient Temp 73 mmHg (75-108) Arterial Blood HCO3 36 mmol/L (21-28) Arterial Blood Base Excess 7 mmol/L (-3-3) FiO2 5 lpm nc Glucose (Fingerstick) 270 mg/dL (70-99) 277 mg/dL (70-99) Test 09/02/18 22:32 09/03/18 05:33 09/03/18 07:19 Urine Color Yellow Urine Clarity Clear Urine pH 7.0 Urine Specific [place] 1.020 Urine Protein Negative mg/dL (NEG-TRACE) Urine Glucose (UA) 250 mg/dL (NEG) Urine Ketones (Stick) Negative mg/dL (NEG) Urine Blood Trace (NEG) Urine Nitrite Negative (NEG) Urine Bilirubin Negative (NEG) Urine Urobilinogen Dipstick 4.0 mg/dL (0.2 mg/dL) Urine Leukocyte Esterase Negative (NEG) Urine RBC Occ /HPF (0-2) Urine WBC 1-4 /HPF (0-4) Urine Squamous Epithelial Cells Occ /LPF Urine Bacteria 0 /HPF (0-FEW) O2 Saturation 97 % (92-99) Arterial Blood pH 7.48 (7.35-7.45) Arterial Blood pCO2 at Patient Temp 37 mmHg (35-46) Arterial Blood pO2 at Patient Temp 89 mmHg (75-108) Arterial Blood HCO3 27 mmol/L (21-28) Arterial Blood Base Excess 4 mmol/L (-3-3) FiO2 35 Glucose (Fingerstick) 133 mg/dL (70-99) Laboratory Tests Test 09/02/18 17:12 09/02/18 19:19 09/02/18 22:32 09/03/18 05:33 Glucose (Fingerstick) 270 mg/dL (70-99) 277 mg/dL (70-99) Urine Color Yellow Urine Clarity Clear Urine pH 7.0 Urine Specific [place] 1.020 Urine Protein Negative mg/dL (NEG-TRACE) Urine Glucose (UA) 250 mg/dL (NEG) Urine Ketones (Stick) Negative mg/dL (NEG) Urine Blood Trace (NEG) Urine Nitrite Negative (NEG) Urine Bilirubin Negative (NEG) Urine Urobilinogen Dipstick 4.0 mg/dL (0.2 mg/dL) Urine Leukocyte Esterase Negative (NEG) Urine RBC Occ /HPF (0-2) Urine WBC 1-4 /HPF (0-4) Urine Squamous Epithelial Cells Occ /LPF Urine Bacteria 0 /HPF (0-FEW) O2 Saturation 97 % (92-99) Arterial Blood pH 7.48 (7.35-7.45) Arterial Blood pCO2 at Patient Temp 37 mmHg (35-46) Arterial Blood pO2 at Patient Temp 89 mmHg (75-108) Arterial Blood HCO3 27 mmol/L (21-28) Arterial Blood Base Excess 4 mmol/L (-3-3) FiO2 35 Test 09/03/18 07:19 Glucose (Fingerstick) 133 mg/dL (70-99) Medications Active Scripts Medications Dose Route/Sig Max Daily Dose Days Date Category Furosemide 40 Mg Tablet 1 Tab PO EVERY OTHER DAY 09/02/18 Reported Anoro Ellipta 62.5-25 Mcg Inh (Umeclidinium Brm/Vilanterol Tr) 1 Each Disk.w.dev 1 Each IH DAILY08 09/02/18 Reported Metformin Hcl 500 Mg Tablet 500 Mg PO BIDWMEALS 08/21/18 Reported Amlodipine Besylate 5 Mg Tablet 5 Mg PO DAILY 08/21/18 Reported Proair Hfa Inhaler (Albuterol Sulfate) 8.5 Gm Hfa.aer.ad 2 Puff IH PRN QID PRN 06/15/15 Reported Metoprolol Tartrate 50 Mg Tablet 1 Tab PO BID 06/10/15 Reported Prinivil (Lisinopril) 20 Mg Tablet 20 Mg PO BID 01/07/14 Rx [Aspirin] 81 MG Tablet.dr 81 Mg PO DAILYWBKFT 01/07/14 Rx Lipitor (Atorvastatin Calcium) 40 Mg Tablet 40 Mg PO QHS 01/07/14 Rx Impression . IMPRESSION: 1. Wuovz-en-ngqoehr hypercapnic hypoxemic respiratory failure. 2. Rcduo-gi-dyumnzv cor pulmonale. 3. Obstructive sleep apnea. 4. Obesity. 5. Hypoventilation syndrome. 6. Protein malnutrition, present upon admission. 7. Morbid obesity. Plan . BETTER WITH BIPAP SECOND ADMISSION IN THE PAST ONE MONTH WITH HYPERCAPNIA RESP FAILURE IN ADDITION PT HAS SEC PULMONARY HYPERTENSION/ACUTE ON CHRONIC COR PULMONALE HE DEFINITELY WOULD BENEFIT FROM BIPAP AT HOME SPOKE WITH SOCIAL SERVICE TO ARRANGE FOR HOME IF INSURANCE APPROVES ABG THIS AM ON BIPAP 0530 7. ABG YESTERDAY UPON ADMISSION 7. ROYA OLIVER MD September 03, 2018 09:09
--- NOTE | 2018-09-03 09:48 | HP ---
ADMIT DATE: 09/02/2018 CHIEF COMPLAINT: Hallucinations. HISTORY OF PRESENT ILLNESS: A 58-year-old white male, recently discharged with severe sleep apnea and oxygen-dependent COPD, who went home on home oxygen after his desaturation studies. He is just trying to get studied as an outpatient for the need for CPAP or BiPAP, but had increasing hallucinations and dyspnea and came back in. Chest x-ray was clear. Blood gas showed mild respiratory acidosis and laboratory studies were otherwise unremarkable. PAST MEDICAL HISTORY: Well documented in the last record. ALLERGIES: No drug allergies. SOCIAL HISTORY: He has not smoked since his last admission, but has been a heavy smoker his entire life since a teenager. He is and employed. FAMILY HISTORY: Unremarkable. REVIEW OF SYSTEMS: No other notable problems. OBJECTIVE: ENT: Plethoric face. He is otherwise unremarkable. NECK: Revealed no masses, JVD, or thyroid enlargement. LUNGS: Decreased breath sounds, a few expiratory wheezes. CARDIOVASCULAR: Tachycardia, rate 100. No murmur. ABDOMEN: Soft, obese, benign and nontender. EXTREMITIES: No edema, reasonably good pedal pulses. Nail beds are dusky, 1-2+ lower extremity edema. NEUROLOGIC: Physiologic, alert, appropriate, responsive and oriented x 4. ASSESSMENT: Fmtem-mq-nbkuvov respiratory failure with chronic hypercapnia and some degree of hallucinations from this. Obstructive sleep apnea and chronic obstructive pulmonary disease are the main problems. Diabetes appears to be well-controlled. JIM SAMS MD DR: BI/torres JOB#: [id number] / [id number]
--- NOTE | 2018-09-03 09:48 | CONS ---
DATE OF CONSULTATION: 09/02/2018 ATTENDING PHYSICIAN: Dr. Al Fan. CONSULTING PHYSICIAN: Dr. Roya Oliver. REASON FOR CONSULTATION: The patient is seen in pulmonary consultation at the request of Dr. Fan for confusion and increasing shortness of air. HISTORY OF PRESENT ILLNESS: The patient is a 58-year-old that was recently discharged from the hospital. He presented with uyjwk-fz-tybiqup hypercapnic respiratory failure during last admission. This morning, he woke up, he was having some difficulty with mentation and his was concerned. She did bring him to the hospital for evaluation. The patient underwent an arterial blood gas, which revealed a pH of 7.37, PaCO2 of 63, pO2 of 73. The patient was discharged home on the . I did check an arterial blood gas on 4 liters and he had a pH of 7.42, pCO2 of 49, PaO2 of 71. He was due to undergo a polysomnogram. His insurance carrier did not cover BiPAP during his last admission. Denies fever, chills, or night sweats. PAST MEDICAL HISTORY: Remarkable for: 1. Acute exacerbation of chronic obstructive pulmonary disease. 2. Tobacco dependence, he has not smoked since he was discharged. 3. Status post AAA repair in 2016. At that time, he also had bilateral lower extremity bypass. 4. Chronic diastolic heart failure. 5. MARTIN. 6. Morbid obesity. 7. Hypertension. 8. Type 2 diabetes. 9. Coronary artery disease. PAST SURGICAL HISTORY: As indicated above. He also had some lumbar spine surgery. ALLERGIES: No known drug allergies. SOCIAL HISTORY: He has not smoked since his discharge from the hospital, limited alcohol intake. FAMILY HISTORY: Father of heart disease. Mother living with heart disease. REVIEW OF SYSTEMS: CONSTITUTIONAL: No fever. EYES: No change in visual acuity. HENT: No nasal congestion or sore throat. PULMONARY: As indicated above. CARDIOVASCULAR: No chest pain or pressure. GASTROINTESTINAL: No nausea, vomiting, diarrhea. GENITOURINARY: No dysuria or frequency. MUSCULOSKELETAL: No localized muscle aches or joint pains. SKIN: No new skin rashes. NEUROLOGIC: No headaches, diplopia or blurred vision. PHYSICAL EXAMINATION: GENERAL: The patient felt better, he was no longer confused. VITAL SIGNS: O2 saturation greater than 92%. HEENT: Eyes: The sclerae were nonicteric. NECK: Jugular venous distention, was not elevated. No lymphadenopathy. CHEST: Full expansion, no deformities. LUNGS: Adequate airway flow with no wheezes. CARDIOVASCULAR: Regular rate and rhythm with S1, S2, no S3. ABDOMEN: Soft, nontender, nondistended. EXTREMITIES: No clubbing, cyanosis. Decreased edema compared to previous admission. LABORATORY DATA: White count was normal. Hemoglobin and hematocrit were noted. Electrolytes were noted. BUN and creatinine were normal. Albumin was low. Chest x-ray reviewed, no acute cardiopulmonary process. IMPRESSION: 1. Haabt-lj-ijpxmxf hypercapnic hypoxemic respiratory failure. 2. Heezr-am-hcrwiyu cor pulmonale. 3. Obstructive sleep apnea. 4. Obesity. 5. Hypoventilation syndrome. 6. Protein malnutrition, present upon admission. 7. Morbid obesity. PLAN: 1. Once again, the patient presents with hypercapnic respiratory failure. During his last admission, I had social service check with insurance carrier to possibly set him up with home Trilogy/BiPAP, the insurance company refused. 2. He is now admitted with similar situation. We will proceed with bedtime BiPAP. 3. Continue diuresis. 4. If insurance declines BiPAP for home, will require an outpatient polysomnogram. ROYA OLIVER MD DR: CAROLINE/torres JOB#: [id number] / [id number]
[2018-09-03 11:42] VITALS: BP 118/66
--- NOTE | 2018-09-03 14:57 | NUR ---
SW consulted to assess for home trilogy with [facility]. SW phoned and faxed referral to [facility]. Awaiting to hear back from [facility]. Discussed with Physician.
[2018-09-03 15:00] VITALS: BP 133/70
[2018-09-03 19:20] VITALS: BP_SYST 103; BP_SYST 110; BP_DIAS 30; BP_DIAS 48
[2018-09-03] MEDS: ATORVASTATIN CALCIUM 40 MG TABLET. PO SCH (22:17)
[2018-09-03 23:15] VITALS: BP 125/78
[2018-09-04 03:22] VITALS: BP 137/75
[2018-09-04 07:20] VITALS: BP 180/78
[2018-09-04] MEDS: ALBUTEROL SULFATE 2.5 MG/3 ML NEBU. NEB SCH ×2 (08:18→12:03)
[2018-09-04] MEDS: BUDESONIDE 0.5 MG/2 ML NEBU. NEB SCH (08:18)
--- NOTE | 2018-09-04 08:53 | PDOC ---
Provider Note Provider Note vss, no new sxs- labs ok- working on home bipap/trilogy JIM SAMS MD September 04, 2018 08:53
[2018-09-04] MEDS: ASPIRIN ENTERIC COATED 81 MG TABLET.DR. PO SCH (09:00)
[2018-09-04] MEDS: LISINOPRIL 20 MG TABLET PO SCH (09:01)
[2018-09-04] MEDS: amLODIPine BESYLATE 5 MG TABLET PO SCH (09:02)
[2018-09-04] MEDS: metFORMIN 500 MG TABLET PO SCH (09:03)
[2018-09-04] MEDS: METOPROLOL TART IMMED RELEASE 50 MG TABLET. PO SCH (09:03)
--- NOTE | 2018-09-04 09:03 | PDOC ---
PULMONARY PROGRESS NOTES Subjective PT FEELS BETTER LESS SOA NOT CONFUSED TODAY Vitals Vital Signs Date Time Temp Pulse Resp B/P (MAP) Pulse Ox O2 Delivery O2 Flow Rate FiO2 09/04/18 08:19 98 Nasal Cannula 4.0 09/04/18 07:20 97.6 71 20 180/78 (112) 97.6 ROS: No Nausea, No Chest Pain, No Abdominal Pain, No Increase Cough General: Alert Lungs: Crackles Cardiovascular: S1, S2 Abdomen: Soft Neuro Exam: Alert Extremities: Other (EDEMA) Skin: Warm Labs Laboratory Tests Test 09/02/18 17:12 09/02/18 19:19 09/02/18 22:32 09/03/18 05:33 Glucose (Fingerstick) 270 mg/dL (70-99) 277 mg/dL (70-99) Urine Color Yellow Urine Clarity Clear Urine pH 7.0 Urine Specific [place] 1.020 Urine Protein Negative mg/dL (NEG-TRACE) Urine Glucose (UA) 250 mg/dL (NEG) Urine Ketones (Stick) Negative mg/dL (NEG) Urine Blood Trace (NEG) Urine Nitrite Negative (NEG) Urine Bilirubin Negative (NEG) Urine Urobilinogen Dipstick 4.0 mg/dL (0.2 mg/dL) Urine Leukocyte Esterase Negative (NEG) Urine RBC Occ /HPF (0-2) Urine WBC 1-4 /HPF (0-4) Urine Squamous Epithelial Cells Occ /LPF Urine Bacteria 0 /HPF (0-FEW) O2 Saturation 97 % (92-99) Arterial Blood pH 7.48 (7.35-7.45) Arterial Blood pCO2 at Patient Temp 37 mmHg (35-46) Arterial Blood pO2 at Patient Temp 89 mmHg (75-108) Arterial Blood HCO3 27 mmol/L (21-28) Arterial Blood Base Excess 4 mmol/L (-3-3) FiO2 35 Test 09/03/18 07:19 09/03/18 11:39 09/03/18 16:34 09/03/18 20:55 Glucose (Fingerstick) 133 mg/dL (70-99) 131 mg/dL (70-99) 97 mg/dL (70-99) 116 mg/dL (70-99) Test 09/04/18 07:36 Glucose (Fingerstick) 101 mg/dL (70-99) Laboratory Tests Test 09/03/18 11:39 09/03/18 16:34 09/03/18 20:55 09/04/18 07:36 Glucose (Fingerstick) 131 mg/dL (70-99) 97 mg/dL (70-99) 116 mg/dL (70-99) 101 mg/dL (70-99) Medications Active Scripts Medications Dose Route/Sig Max Daily Dose Days Date Category Furosemide 40 Mg Tablet 1 Tab PO EVERY OTHER DAY 09/02/18 Reported Anoro Ellipta 62.5-25 Mcg Inh (Umeclidinium Brm/Vilanterol Tr) 1 Each Disk.w.dev 1 Each IH DAILY08 09/02/18 Reported Metformin Hcl 500 Mg Tablet 500 Mg PO BIDWMEALS 08/21/18 Reported Amlodipine Besylate 5 Mg Tablet 5 Mg PO DAILY 08/21/18 Reported Proair Hfa Inhaler (Albuterol Sulfate) 8.5 Gm Hfa.aer.ad 2 Puff IH PRN QID PRN 06/15/15 Reported Metoprolol Tartrate 50 Mg Tablet 1 Tab PO BID 06/10/15 Reported Prinivil (Lisinopril) 20 Mg Tablet 20 Mg PO BID 01/07/14 Rx [Aspirin] 81 MG Tablet.dr 81 Mg PO DAILYWBKFT 01/07/14 Rx Lipitor (Atorvastatin Calcium) 40 Mg Tablet 40 Mg PO QHS 01/07/14 Rx Impression . IMPRESSION: 1. Bmhwf-pf-kxtqozj hypercapnic hypoxemic respiratory failure. 2. Sakaa-bc-ayxecyy cor pulmonale. 3. Obstructive sleep apnea. 4. Obesity. 5. Hypoventilation syndrome. 6. Protein malnutrition, present upon admission. 7. Morbid obesity. Plan . BETTER WITH BIPAP SECOND ADMISSION IN THE PAST ONE MONTH WITH HYPERCAPNIA RESP FAILURE IN ADDITION PT HAS SEC PULMONARY HYPERTENSION/ACUTE ON CHRONIC COR PULMONALE HE DEFINITELY WOULD BENEFIT FROM BIPAP AT HOME SPOKE WITH SOCIAL SERVICE TO ARRANGE FOR HOME IF INSURANCE APPROVES ABG THIS AM ON BIPAP 0530 7. ABG YESTERDAY UPON ADMISSION 7. ROYA OLIVER MD September 04, 2018 09:03
--- NOTE | 2018-09-04 09:39 | NUR ---
RASHEEDA following Pt. Spoke with Freya at [facility] and Pt does qualify for home trilogy. She reported they will send orders to Dr. Corrales's office but can arrange home trilogy today after dc. Discussed with RN and RN will page Pt's PCP regarding dc orders.
[2018-09-04 11:00] VITALS: BP 132/74
--- NOTE | 2018-09-04 14:35 | DS ---
DATE OF DISCHARGE: 09/04/2018 HOSPITAL SUMMARY: A 58-year-old white male with severe COPD and sleep apnea, pulmonary hypertension, came in with hallucinations and confusion related to mild respiratory acidosis from hypercarbia. This cleared quickly with use of CPAP and then BiPAP overnight the next night and he is doing well at this time. Chest x-ray and all labs were normal and once Trilogy ventilator was arranged through Dr. Corrales per [employer], he will be discharged and followed at home with his airway management. FINAL DIAGNOSES: 1. Acute on chronic respiratory acidosis secondary to respiratory failure from chronic obstructive pulmonary disease. 2. Chronic tobacco abuse. 3. Obstructive sleep apnea. OPERATIONS, PROCEDURES, COMPLICATIONS: None. CONSULTATIONS: Dr. Corrales. DISPOSITION: Home meds remain the same including the use of Chantix. He will be using the Trilogy home ventilator system once this is arranged at home as well as oxygen as already ordered. Followup with myself in 2 weeks, Dr. Corrales in 1-2 weeks in regards to the efficiency of the home ventilator unit. Complete tobacco avoidance was encouraged to prevent a nonfatal outcome or fatal outcome. JIM SAMS MD DR: BI/torres JOB#: [id number] / [id number]
--- NOTE | 2018-09-04 15:33 | NUR ---
Discharge Note: BIN MCCARTHY F6 [facility] Discharge instructions and discharge home medications reviewed with Patient and a copy given. All questions have been answered and understanding verbalized. The following instructions and handouts were given: Follow up with Dr. Fan in [address] Corrales 1-2weeks. Education pertaining to COPD was discussed and given to patient. Discontinued lines and drains: 20g Right hand removed with tip intact. Patient discharged to home with self care. drove patient from [facility] facility.
== END 2018-09-04 15:35 | disposition home or self-care (01) | DRG 189 ==
LOC: ER 07:23 → 6 SOUTH 09:10
PROVIDERS: ADMIT Family Medicine; ATTEND Family Medicine
PROC: 5A09357 Assistance with Respiratory Ventilation, Less than 24 Consecutive Hours, Continuous Positive Airway Pressure (ICD-10-PCS; 2018-09-03)
PROC: 5A09357 Assistance with Respiratory Ventilation, Less than 24 Consecutive Hours, Continuous Positive Airway Pressure (ICD-10-PCS; principal; 2018-09-04)
DX: J96.21 Acute and chronic respiratory failure with hypoxia (principal); J44.1 Chronic obstructive pulmonary disease with (acute) exacerbation; E46 Unspecified protein-calorie malnutrition; I50.32 Chronic diastolic (congestive) heart failure; R44.3 Hallucinations, unspecified; E87.2 Acidosis; Z68.41 Body mass index [BMI] 40.0-44.9, adult; I27.81 Cor pulmonale (chronic); J96.22 Acute and chronic respiratory failure with hypercapnia; E66.01 Morbid (severe) obesity due to excess calories; I25.10 Atherosclerotic heart disease of native coronary artery without angina pectoris; I11.0 Hypertensive heart disease with heart failure; G47.33 Obstructive sleep apnea (adult) (pediatric); E11.9 Type 2 diabetes mellitus without complications; Z99.81 Dependence on supplemental oxygen; Z86.79 Personal history of other diseases of the circulatory system; Z72.0 Tobacco use; Z82.49 Family history of ischemic heart disease and other diseases of the circulatory system
CPT/HCPCS: 36415; 36600; 71045; 80053; 81001; 82805; 82962; 83880; 84484; 85025; 93005; 94640; 94660; 94760; 96361; 96365; 96375; J2930; J3490; J7040; J7613; J7620; J7626; 99285-25

== ENCOUNTER → 2021-01-06 | Outpatient (CLI) | payer MEDICARE, OTHER ==
[~2021-01-06] MED LIST changes: +AMLO-186 PO; -AMLO5TAB10 PO; +FURO40TA4 PO; -PANT40TA3 PO; +PANT40TA77 PO; +POTA-121 PO; -POTA20TA4 PO; +UMEC1DIS IH
--- NOTE | 2021-01-06 15:14 | KCIC ---
CT of the abdomen and pelvis without contrast. 01/06/2021 1:33 PM Indication: Reason: AAA follow up. Surgery 5 yrs. ago. / Comparison Study: CT of the abdomen and pelvis with contrast February 22, 2015. Technique: Multidetector CT imaging of the abdomen pelvis is obtained without administration of contr ast. Findings: The visualized bilateral lung bases are clear. The lung bases demonstrate no acute abnormality. Liver and gallbladder are unremarkable. Adrenal glands unremarkable. Small adenoma in the left adrenal glands is unchanged. Spleen is unremar kable. Pancreas is unremarkable. Perinephric stranding noted bilaterally. Right inferior anterior rajwinder al cyst is slightly increased in size in the interim now measuring approximately 2.3 cm in diameter. No evidence of bowel obstruction is identified. No free fluid or free air seen in the abdomen or pelv is. Aortic arch is an unremarkable noncontrast enhanced appearance. No residual aneurysm is identifie d. No acute osseous changes are identified. IMPRESSION: 1. Unremarkable noncontrast enhanced appearance of the aortic graft. No residual or recurrent aneurys m. 2. No acute intra-abdominal abnormality. CT DOSING PQRS STATEMENT: One or more of the following individualized dose reduction techniques were utilized for this examinat ion: 1. Automated exposure control 2. Adjustment of the mA and/or kV according to patient size 3. Use of iterative reconstruction technique Electronically signed by: Timbo Armenta MD (01/06/2021 3:11 PM) [id number]
== END ==
LOC: KCIC CT 13:22
PROVIDERS: ATTEND Surgery Vascular Surgery
DX: D35.02 Benign neoplasm of left adrenal gland (principal); N28.1 Cyst of kidney, acquired; Z98.890 Other specified postprocedural states
CPT/HCPCS: 74176

== ENCOUNTER → 2021-08-19 | Outpatient (CLI) | payer MEDICARE, OTHER ==
--- NOTE | 2021-08-19 15:28 | CARD ---
MR#: [id number] Date of Study: 08/19/2021 Ordering Physician: JOE KUHN, Referring Physician: Jadyn SINGLETON: Tammi Ramirez [facility] APPROVED REPORT EXAM: Two-dimensional and M-mode echocardiogram with Doppler and color Doppler. Other Information Quality : AverageHR: 91bpm Rhythm : NSR INDICATION COPD Dyspnea CAD 2D DIMENSIONS RVDd2.8 (2.9-3.5cm)Left Atrium(2D)3.9 (1.6-4.0cm) IVSd1.0 (0.7-1.1cm)Aortic Root(2D)4.1 (2.0-3.7cm) LVDd4.9 (3.9-5.9cm)LVOT Diameter2.3 (1.8-2.4cm) PWd1.0 (0.7-1.1cm)LVDs3.6 (2.5-4.0cm) FS (%) 26.7 %SV59.0 ml Aortic Valve AoV Peak Patricio.192.4cm/sAoV VTI37.2cm AO Peak GR.14.8mmHgLVOT Peak Patricio.113.6cm/s AO Mean GR.8mmHgAVA (VMAX)2.46cm2 Mitral Valve MV E Vnpxqybh62.4cm/sMV DECEL QOTK116wb MV A Tvvrigmu02.8cm/sE/A Ratio0.8 Pulmonary Valve PV Peak Kzfksqzj20.1cm/s Tricuspid Valve TR P. Bsbmhnuf021dn/sRAP NDKRZOPK4nhEo TR Peak Gr.64kcLnLZMX17rkCs Pulmonary Vein S1 Tqxvegra51.9cm/sD2 Eubsxuje87.4cm/s PVa uuhbvnhz17bycf LEFT VENTRICLE The left ventricle is normal size. There is mild concentric left ventricular hypertrophy. Left ventri cular systolic function is intact. The ejection fraction is 50 to 55%. No regional wall motion abnorm alities noted. The left ventricular diastolic function is normal. No left ventricle thrombus noted on this study. There is no ventricular septal defect visualized. There is no left ventricular aneurysm. There is no mass noted in the left ventricle. RIGHT VENTRICLE The right ventricle is normal size. There is normal right ventricular wall thickness. The right ventr icular systolic function is normal. ATRIA The left atrium size is normal. The right atrium size is normal. The interatrial septum is intact wit h no evidence for an atrial septal defect or patent foramen ovale as noted on 2-D or Doppler imaging. AORTIC VALVE The aortic valve is normal in structure and function. Doppler and Color Flow revealed no significant aortic regurgitation. There is no aortic valvular stenosis. There is no aortic valvular vegetation. MITRAL VALVE The mitral valve is normal in structure and function. There is no evidence of mitral valve prolapse. There is no mitral valve stenosis. Doppler and Color Flow revealed trace mitral valve regurgitation. TRICUSPID VALVE The tricuspid valve is normal in structure and function. Doppler and Color Flow revealed no tricuspid valve regurgitation noted. There is no tricuspid valve prolapse or vegetation. There is no tricuspid valve stenosis. PULMONIC VALVE The pulmonary valve is normal in structure and function. There is no pulmonic valvular regurgitation. There is no pulmonic valvular stenosis. GREAT VESSELS The aortic root is normal in size. The ascending aorta is normal in size. The pulmonary artery is nor mal. The IVC is normal in size and collapses >50% with inspiration. PERICARDIAL EFFUSION There is no pleural effusion. The pericardium appears normal. Critical Notification Critical Value: No <Conclusion> The left ventricle is normal size. Left ventricular systolic function is intact. The ejection fraction is 50 to 55%. There is mild concentric left ventricular hypertrophy. Doppler and Color Flow revealed no significant aortic regurgitation. There is no aortic valvular stenosis. Doppler and Color Flow revealed trace mitral valve regurgitation. Doppler and Color Flow revealed no tricuspid valve regurgitation noted. Signed by : Aden Edmond MD Electronically Approved : 08/19/2021 15:28:03
== END ==
LOC: ECHO 12:39
PROVIDERS: ATTEND Internal Medicine Cardiovascular Disease
DX: I51.7 Cardiomegaly (principal); I42.9 Cardiomyopathy, unspecified; I25.10 Atherosclerotic heart disease of native coronary artery without angina pectoris
CPT/HCPCS: 93306; C8929